=== PATIENT | male | born 1975 | race Caucasian/White ===

== ENCOUNTER 2018-04-28 19:17 | Emergency (ER) | payer BC ==
[2018-04-28 19:54] VITALS: O2SAT 95
--- NOTE | 2018-04-28 20:03 | ERPHSYRPT ---
- History of Present Illness Time Seen by Provider: 04/28/18 19:58 Source: patient Exam Limitations: no limitations Patient Subjective Stated Complaint: pt is alert and oriented. pt is ambulatory with a steady gait. pt states that he smashed his left thumb with a hammer. there is some bruising noted underneath the thumb nail and an open area on the back of the thumb. no actively bleeding at this time. Triage Nursing Assessment: see above Physician History: The patient is a 43-year-old right-handed male complaining that he accidentally hit the tip of his left thumb with a hammer while doing some work around home. He has a bruised thumbnail with tiny surrounding lacerations to the thumbnail and a laceration to the pad of his left thumb. He was worried that he possibly had broken the bone of his thumb. His last tetanus vaccination was in 2013. Occurred: just prior to arrival Method of Injury: direct blow Quality: constant Severity of Pain-Max: mild Severity of Pain-Current: mild Extremities Pain Location: thumb: left Modifying Factors: Improves With: nothing Allergies/Adverse Reactions: No Known Drug Allergies Allergy (Unverified 10/12/15 10:23) Hx Tetanus, Diphtheria Vaccination/Date Given: Yes (2015) Hx Influenza Vaccination/Date Given: No Hx Pneumococcal Vaccination/Date Given: No Immunizations Up to Date: Yes - Review of Systems Constitutional: No Fever, No Chills Eyes: No Symptoms Ears, Nose, & Throat: No Symptoms Respiratory: No Cough, No Dyspnea Cardiac: No Chest Pain, No Edema, No Syncope Abdominal/Gastrointestinal: No Abdominal Pain, No Nausea, No Vomiting, No Diarrhea Genitourinary Symptoms: No Dysuria Musculoskeletal: Injury, No Back Pain, No Neck Pain Skin: Other (laceration), No Rash Neurological: No Dizziness, No Focal Weakness, No Sensory Changes Psychological: No Symptoms Endocrine: No Symptoms Hematologic/Lymphatic: No Symptoms Immunological/Allergic: No Symptoms All Other Systems: Reviewed and Negative - Past Medical History Pertinent Past Medical History: Yes Neurological History: No Pertinent History ENT History: No Pertinent History Cardiac History: Hypertension Respiratory History: No Pertinent History, Sleep Apnea Endocrine Medical History: No Pertinent History Musculoskeletal History: No Pertinent History GI Medical History: No Pertinent History History: No Pertinent History Psycho-Social History: No Pertinent History Male Reproductive Disorders: No Pertinent History Other Medical History: White coat Syndrome, Severe obstructive sleep apnea - Past Surgical History Past Surgical History: Yes Neuro Surgical History: No Pertinent History Cardiac: No Pertinent History Respiratory: No Pertinent History Gastrointestinal: No Pertinent History Genitourinary: No Pertinent History Musculoskeletal: No Pertinent History Male Surgical History: No Pertinent History Other Surgical History: colonoscopy every 5 yrs - Social History Smoking Status: Never smoker Exposure to second hand smoke: Yes Drug Use: none Patient Lives Alone: No - Nursing Vital Signs Nursing Vital Signs: Initial Vital Signs Temperature 98.5 F 04/28/18 19:18 Pulse Rate 94 H 04/28/18 19:18 Respiratory Rate 16 04/28/18 19:18 Blood Pressure 158/104 04/28/18 19:18 O2 Sat by Pulse Oximetry 95 04/28/18 19:18 Pain Scale Pain Intensity 3 - Physical Exam General Appearance: alert Eyes, Ears, Nose, Throat Exam: moist mucous membranes Neck Exam: non-tender, supple Cardiovascular/Respiratory Exam: chest non-tender, normal breath sounds, regular rate/rhythm, no respiratory distress Abdominal Exam: non-tender, No guarding Back Exam: normal inspection, No vertebral tenderness Shoulder Exam: normal inspection Elbow/Forearm Exam: normal inspection Wrist Exam: normal inspection Hand Exam: ecchymosis (left thumb nail), laceration (0.5 cm laceration to pad of left thumb), nail injury (left thumb), soft tissue tenderness (distal left thumb) Neuro/Tendon Exam: normal sensation, normal motor functions Mental Status Exam: alert, oriented x 3, cooperative Skin Exam: laceration SpO2 Interpretation: normal SpO2: 95 Oxygen Delivery: Room Air Ordered Tests: Active Orders 24 hr Category Date Time Status IV Insertion STAT Care 04/28/18 20:47 Active FINGER(S) Stat Exams 04/28/18 20:06 Taken Medication Summary Generic Name Dose Route Start Last Admin Trade Name Freq PRN Reason Stop Dose Admin Piperacillin Sod/Tazobactam Sod 3.375 gm in 100 mls @ 200 mls/hr 04/28/18 20: 48 Zosyn 3.375gm/100 Ml D5w IV 04/28/18 21:17 STAT STA Discontinued Medications Generic Name Dose Route Start Last Admin Trade Name Freq PRN Reason Stop Dose Admin Ketorolac Tromethamine 60 mg 04/28/18 20:05 04/28/18 20:28 Toradol 30 Mg Injection IM 04/28/18 20:06 60 mg STAT ONE Administration Ketorolac Tromethamine Confirm 04/28/18 20:16 Toradol 30 Mg Injection Administered 04/28/18 20:17 Dose 60 mg .ROUTE .STK-MED ONE - Progress Progress: improved Progress Note: 04/28/18 20:51 Pt declines sutures. Counseled pt/family regarding: diagnosis, rad results - Departure Time of Disposition: 20:51 Departure Disposition: Home Clinical Impression: Fracture of thumb, left, open Condition: Stable Critical Care Time: No Referrals: JESS DUQUE [Primary Care Provider] - Additional Instructions: You have avulsion fractures off the tip of your left thumb as well as minor lacerations over the fractures. You were given Zosyn 3.375 g by IV in the ER. You were given Toradol 60 mg by IM in the ER. Take Augmentin 875 to times a day for 10 days. You had declined suturing. Follow-up as needed. Prescriptions: Amoxicillin/Potassium Clav [Augmentin 875-125 Tablet] 875 mg PO BID #20 tablet
[2018-04-28] MEDS ORDERED: TORAdol 30 mg Injection IM ONE (20:05)
[2018-04-28] MEDS ORDERED: TORAdol 30 mg Injection ONE (20:16)
[2018-04-28] MEDS ORDERED: Zosyn 3.375GM/100 Ml D5W 3.375 GM/100 ML IVPB IV STA (20:48)
[2018-04-28] MEDS ORDERED: Zosyn 3.375GM/100 Ml D5W 3.375 GM/100 ML IVPB IV ONE (21:25)
[2018-04-28 22:18] VITALS: BP 146/98; PULSE 92
--- NOTE | 2018-04-28 22:33 | XRAY ---
Indication: Pain following hammer injury. Impression: No 3 views of the left thumb demonstrates tuft fracture with minimally displaced fracture fragments anteromedially and soft tissue swelling. No other bony, articular, or soft tissue abnormalities.
== END 2018-04-28 22:19 | disposition home or self-care (01) ==
LOC: ED 19:17
DX: S62.502B Fracture of unspecified phalanx of left thumb, initial encounter for open fracture (principal); W22.8XXA Striking against or struck by other objects, initial encounter; Y93.E9 Activity, other interior property and clothing maintenance; Y92.009 Unspecified place in unspecified non-institutional (private) residence as the place of occurrence of the external cause
CPT/HCPCS: 36000; 73140; 96372; 99284; J1885; J2543

== ENCOUNTER 2021-11-12 14:14 | Inpatient (IN) | payer OTHER ==
[2021-11-12] MEDS ORDERED: solu-MEDROL 125 MG, Sterile H2O 10 ml 2 ML IV ONE ×2 (14:27)
--- NOTE | 2021-11-12 14:27 | ERPHSYRPT ---
- History of Present Illness Time Seen by Provider: 11/12/21 14:26 Source: patient Exam Limitations: no limitations Patient Subjective Stated Complaint: pt reports he was at this facility to receive monoclonal antibodies for covid treatment, pt states he is positive for influenza A and Covid, reports that when he arrived today his O2 sat was 86% on room air. OPS staff sent him to ER for eval and treatment Triage Nursing Assessment: pt is aox3, pt appears weak, afebrile, pt is short of breath at rest, persistent cough noted, lung sounds are very diminished posterior, pt cap refill < 3 seconds, radial pulses strong and equal, pt skin pale warm dry. Physician History: This is a 46-year-old overweight white male who has not been feeling well and states that he has had flulike symptoms for several days. 2 days ago he found out he was positive for influenza A. Today, the patient found out that he was COVID-19 positive. He has been having flulike symptoms including cough and shortness of breath as well as myalgias and arthralgias. Patient arrived at the outpatient infusion clinic to receive monoclonal antibody therapy and his room air oxygenation level was 86%. He was sent to the emergency department for evaluation and treatment. Patient denies chest pain. He has had no nausea vomiting or diarrhea. Timing/Duration: day(s) Activities at Onset: activity Severity of Dyspnea-Max: moderate (This) Severity of Dyspnea-Current: moderate Possible Cause: no prior episodes Modifying Factors: Improves With: activity, coughing, oxygen (Improves) Associated Symptoms: cough, loss of appetite, No chest pain/discomfort Allergies/Adverse Reactions: No Known Drug Allergies Allergy (Verified 11/12/21 14:24) Hx Tetanus, Diphtheria Vaccination/Date Given: Yes Hx Influenza Vaccination/Date Given: No Hx Pneumococcal Vaccination/Date Given: No Immunizations Up to Date: Yes Travel Risk - International Travel Have you traveled outside of the country in past 3 weeks: No - Coronavirus Screening Are you exhibiting any of the following symptoms?: Yes Symptoms: Fever, Cough: New Onset, Shortness of Breath, Headaches/Body Aches/Fatigue Close contact with a COVID-19 positive Pt in past 14-21 Days: No - Vaccine Status Have you recieved a Covid-19 vaccination: No - Review of Systems Constitutional: Weakness Eyes: No Symptoms Ears, Nose, & Throat: No Symptoms Respiratory: Cough, Dyspnea Cardiac: No Symptoms Abdominal/Gastrointestinal: No Symptoms Genitourinary Symptoms: No Symptoms Musculoskeletal: Arthralgias, Myalgias Skin: No Symptoms Neurological: No Symptoms Psychological: No Symptoms Endocrine: No Symptoms Hematologic/Lymphatic: No Symptoms Immunological/Allergic: No Symptoms All Other Systems: Reviewed and Negative - Past Medical History Pertinent Past Medical History: Yes Neurological History: No Pertinent History ENT History: No Pertinent History Cardiac History: Hypertension Respiratory History: No Pertinent History, Sleep Apnea Endocrine Medical History: No Pertinent History, Hypothyroidism Musculoskeletal History: No Pertinent History GI Medical History: No Pertinent History History: No Pertinent History Psycho-Social History: No Pertinent History Male Reproductive Disorders: No Pertinent History Other Medical History: White coat Syndrome, Severe obstructive sleep apnea - Past Surgical History Past Surgical History: Yes Neuro Surgical History: No Pertinent History Cardiac: No Pertinent History Respiratory: No Pertinent History Gastrointestinal: No Pertinent History Genitourinary: No Pertinent History Musculoskeletal: No Pertinent History Male Surgical History: No Pertinent History Other Surgical History: colonoscopy every 5 yrs - Social History Smoking Status: Never smoker Exposure to second hand smoke: Yes Drug Use: none Patient Lives Alone: No - Nursing Vital Signs Nursing Vital Signs: Initial Vital Signs Pulse Rate 92 H 11/12/21 14:16 Respiratory Rate 26 H 11/12/21 14:16 Blood Pressure 120/68 11/12/21 14:16 O2 Sat by Pulse Oximetry 86 L 11/12/21 14:16 Pain Scale Pain Intensity 0 - Physical Exam General Appearance: no apparent distress, alert, anxiety Eye Exam: PERRL/EOMI, eyes nml inspection Ears, Nose, Throat Exam: hearing grossly normal, normal ENT inspection Neck Exam: normal inspection, non-tender, supple, full range of motion Respiratory Exam: normal breath sounds, lungs clear, airway intact, No chest tenderness, No respiratory distress Cardiovascular/Chest Exam: normal heart sounds, regular rate/rhythm Abdominal/Gastrointestinal Exam: soft, normal bowel sounds, No tenderness Rectal Exam: not done Extremity Exam: non-tender, normal range of motion, normal inspection Neurologic Exam: alert, oriented x 3, cooperative, 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 STAT Care 11/12/21 14:28 Active EKG-ER Only STAT Care 11/12/21 14:27 Active IV Insertion STAT Care 11/12/21 14:27 Active Isolation, Initiate & Maintain STAT Care 11/12/21 14:28 Active CHEST 1 VIEW (PORTABLE) Stat Exams 11/12/21 14:51 Completed BLOOD CULTURE Stat Lab 11/12/21 14:42 Received CBC W DIFF Stat Lab 11/12/21 14:13 Completed CMP Stat Lab 11/12/21 14:27 Completed D-DIMER QUANTITATIVE Stat Lab 11/12/21 14:13 Completed Lactic Acid Stat Lab 11/12/21 14:27 Completed [place] Screen Stat Lab 11/12/21 14:42 Received TROPONIN Q3H Lab 11/12/21 14:13 Completed TROPONIN Q3H Lab 11/12/21 17:30 Ordered TROPONIN Q3H Lab 11/12/21 20:30 Ordered TROPONIN Q3H Lab 11/12/21 23:30 Ordered TROPONIN Q3H Lab 11/13/21 02:30 Ordered Medication Summary Generic Name Dose Route Start Last Admin Trade Name Freq PRN Reason Stop Dose Admin Sodium Chloride 1,000 mls @ 100 mls/hr 11/12/21 14:30 11/12/21 14:49 Sodium Chloride 0.9% 1000 Ml IV 12/12/21 14:29 100 mls/hr .Q10H JANNET Administration Discontinued Medications Generic Name Dose Route Start Last Admin Trade Name Freq PRN Reason Stop Dose Admin Hydrocodone Bitart/Acetaminophen 10 ml 11/12/21 14:29 11/12/21 14:50 Hydrocodone/Acetaminophen 5 Ml Udcup PO 11/12/21 14:30 10 ml STAT STA Administration Hydrocodone Bitart/Acetaminophen Confirm 11/12/21 14:49 Hydrocodone/Acetaminophen 5 Ml Udcup Administered 11/12/21 14:50 Dose 10 ml .ROUTE .STK-MED ONE Methylprednisolone Sodium 0 mg 11/12/21 14:27 11/12/21 14:48 Succinate 125 mg/ Sterile IV 11/12/21 14:28 125 mg Water 2 ml STAT ONE Administration Methylprednisolone Sodium Succinate Confirm 11/12/21 14:46 Methylprednis Sod Succ 125 Mg/2 Ml Vial Administered 11/12/21 14:47 Dose 125 mg .ROUTE .youbeQ - Maps With LifeK-MED ONE Sterile Water Confirm 11/12/21 14:46 Water For Injection,Sterile 10 Ml Vial Administered 11/12/21 14:47 Dose 10 ml IJ .STD-Sight-MED ONE Lab/Rad Data: Laboratory Result Diagrams 11/12/21 14:13 11/12/21 14:27 Laboratory Results 11/12/21 11/12/21 11/12/21 Range/Units 14:42 14:27 14:27 WBC (4.0-10.5) K/mm3 RBC (4.1-5.6) M/mm3 Hgb (12.5-18.0) gm/dl Hct (42-50) % MCV (78-100) fl MCH (26-32) pg MCHC (32-36) g/dl RDW (11.5-14.0) % Plt Count (150-450) K/mm3 MPV (7.5-11.0) fl Gran % (36.0-66.0) % Eos # (Auto) (0-0.5) Absolute Lymphs (auto) (1.0-4.6) Absolute Monos (auto) (0.0-1.3) Lymphocytes % (24.0-44.0) % Monocytes % (0.0-12.0) % Eosinophils % (0.00-5.0) % Basophils % (0.0-0.4) % Absolute Granulocytes (1.4-6.9) Basophils # (0-0.4) D-Dimer (215-500) ng/mL Sodium 137 (137-145) mmol/L Potassium 3.9 (3.5-5.1) mmol/L Chloride 100 (98-107) mmol/L Carbon Dioxide 29 (22-30) mmol/L Anion Gap 11.6 (5-15) MEQ/L BUN 17 (9-20) mg/dL Creatinine 1.28 H (0.66-1.25) mg/dL Estimated GFR > 60.0 ML/MIN Glucose 109 H (74-106) mg/dL Lactic Acid 2.0 (0.4-2.0) Calcium 8.7 (8.4-10.2) mg/dL Total Bilirubin 0.70 (0.2-1.3) mg/dL AST 115 H (17-59) U/L ALT 60 H (0-50) U/L Alkaline Phosphatase 51 (38-126) U/L Troponin I (0.000-0.034) ng/mL Serum Total Protein 7.5 (6.3-8.2) g/dL Albumin 4.0 (3.5-5.0) g/dL Group A Strep Antibody NOT DETECTED (NEGATIVE) 11/12/21 11/12/21 11/12/21 Range/Units 14:13 14:13 14:13 WBC 4.1 (4.0-10.5) K/mm3 RBC 5.04 (4.1-5.6) M/mm3 Hgb 15.4 (12.5-18.0) gm/dl Hct 46.5 (42-50) % MCV 92.3 (78-100) fl MCH 30.6 (26-32) pg MCHC 33.1 (32-36) g/dl RDW 14.1 H (11.5-14.0) % Plt Count 159 (150-450) K/mm3 MPV 10.5 (7.5-11.0) fl Gran % 73.2 H (36.0-66.0) % Eos # (Auto) 0.01 (0-0.5) Absolute Lymphs (auto) 0.86 L (1.0-4.6) Absolute Monos (auto) 0.22 (0.0-1.3) Lymphocytes % 21.0 L (24.0-44.0) % Monocytes % 5.4 (0.0-12.0) % Eosinophils % 0.2 (0.00-5.0) % Basophils % 0.2 (0.0-0.4) % Absolute Granulocytes 3.00 (1.4-6.9) Basophils # 0.01 (0-0.4) D-Dimer 672 H* (215-500) ng/mL Sodium (137-145) mmol/L Potassium (3.5-5.1) mmol/L Chloride (98-107) mmol/L Carbon Dioxide (22-30) mmol/L Anion Gap (5-15) MEQ/L BUN (9-20) mg/dL Creatinine (0.66-1.25) mg/dL Estimated GFR ML/MIN Glucose (74-106) mg/dL Lactic Acid (0.4-2.0) Calcium (8.4-10.2) mg/dL Total Bilirubin (0.2-1.3) mg/dL AST (17-59) U/L ALT (0-50) U/L Alkaline Phosphatase (38-126) U/L Troponin I < 0.012 (0.000-0.034) ng/mL Serum Total Protein (6.3-8.2) g/dL Albumin (3.5-5.0) g/dL Group A Strep Antibody (NEGATIVE) - Progress Progress: improved, re-examined Air Movement: good Progress Note: 11/12/21 15:26 Chest x-ray today compared to 11/10/2021 shows worsening moderate diffuse bilateral airspace disease with new patchy areas of consolidation 11/12/21 15:35 Medical decision making: This patient has worsening symptoms. He was COVID-19 positive with COVID 19 pneumonia. He is hypoxic. I spoke with Dr. Dasilva and we will place him into the COVID unit once a bed becomes available. We will start treatment down here at this time in the emergency department. Blood Culture(s) Obtained: Yes Discussed with : Other (Vidya) Counseled pt/family regarding: lab results, diagnosis, rad results - Departure Departure Disposition: In-patient Admission Clinical Impression: Pneumonia due to COVID-19 virus, Hypoxia Condition: Fair Critical Care Time: Yes Critical Care Time(excluding separately billable procedures): Critical 30-74 mins (30) Referrals: JESS DUQUE [Primary Care Provider] - Follow up/PCP as directed
[2021-11-12] MEDS ORDERED: HYDROCODONE-ACETAMIN 2.5-108/5 ML SOLUTION PO STA (14:29)
[2021-11-12] MEDS ORDERED: Sodium Chloride 0.9% 1000 ML 1,000 ML IV SCH (14:30)
[2021-11-12 14:36] LABS: Basophil (Absolute #) 0.01 (0-0.4); Eosinophil % 0.2 % (0.00-5.0); Eosinophil (Absolute #) 0.01 (0-0.5); Hematocrit 46.5 % (42-50); Hemoglobin 15.4 gm/dl (12.5-18.0); Lymphocyte (Absolute #) 0.86 (1.0-4.6); Mean Cell Volume 92.3 fl (78-100); Mean Corpuscular Hemoglobin 30.6 pg (26-32); Mean Corpuscular Hgb Concent. 33.1 g/dl (32-36); Mean Platelet Volume 10.5 fl (7.5-11.0); Monocyte (Absolute #) 0.22 (0.0-1.3); Monocytes % 5.4 % (0.0-12.0); Neutrophil % 73.2 % (36.0-66.0); Platelet Count 159 K/mm3 (150-450); Red Blood Count 5.04 M/mm3 (4.1-5.6); Red Cell Distribution Width 14.1 % (11.5-14.0); White Blood Count 4.1 K/mm3 (4.0-10.5)
[2021-11-12 14:43] LABS: ALKALINE PHOSPHATASE 51 U/L (38-126); ANION GAP 11.6 MEQ/L (5-15); BLOOD UREA NITROGEN 17 mg/dL (9-20); CHLORIDE 100 mmol/L (98-107); Calcium 8.7 mg/dL (8.4-10.2); Carbon Dioxide 29 mmol/L (22-30); Creatinine 1 1.28 mg/dL (0.66-1.25); EST GLOMERULAR FILTRATION RATE > 60.0 ML/MIN; Glucose 109 mg/dL (74-106); Potassium 3.9 mmol/L (3.5-5.1); SGOT/AST 115 U/L (17-59); SGPT/ALT 60 U/L (0-50); SODIUM 137 mmol/L (137-145); Total Protein 7.5 g/dL (6.3-8.2)
[2021-11-12] MEDS ORDERED: solu-MEDROL ONE (14:46)
[2021-11-12] MEDS ORDERED: Sterile H2O 10 ml IJ ONE (14:46)
[2021-11-12] MEDS ORDERED: HYDROCODONE-ACETAMIN 2.5-108/5 ML SOLUTION ONE (14:49)
--- NOTE | 2021-11-12 14:58 | XRAY ---
Indication: Fever and cough. Positive Covid 19. Comparison: November 10, 2021. Pourable chest demonstrates worsening moderate diffuse bilateral airspace disease with new patchy areas of consolidation. Heart not enlarged. Bony thorax intact.
[2021-11-12] MEDS ORDERED: ENOXAPARIN SODIUM SQ STA (15:38)
[2021-11-12] MEDS ORDERED: REMDESIVIR 200 MG in Sodium Chloride 0.9% 250 ML 250 ML IV ONE (15:38)
[2021-11-12] MEDS ORDERED: ENOXAPARIN SODIUM SQ ONE (16:18)
[2021-11-12] MEDS ORDERED: Lomotil PO PRN (17:25)
[2021-11-12] MEDS ORDERED: Ativan 2 MG/1 ML VIAL IV PRN (17:26)
[2021-11-12] MEDS ORDERED: Ativan 1 MG PO PRN (17:26)
[2021-11-12] MEDS ORDERED: TYLENOL EXTRA STRENGTH 500 MG PO PRN (17:27)
[2021-11-12] MEDS ORDERED: FEVERALL 650 MG RC PRN (17:27)
[2021-11-12] MEDS ORDERED: HYDROCODONE-CHLORPHEN ER SUSP PO PRN (17:27)
[2021-11-12] MEDS ORDERED: Zofran 4 MG/2 ML VIAL IV PRN (17:33)
[2021-11-12] MEDS: Sodium Chloride 0.9% 1000 ML 1,000 ML IV SCH (17:49)
[2021-11-12] MEDS: OLUMIANT PO SCH (18:43)
[2021-11-13] MEDS: HYDROCODONE-CHLORPHEN ER SUSP PO PRN (02:54)
[2021-11-13 05:51] LABS: Hematocrit 43.7 % (42-50); Hemoglobin 14.2 gm/dl (12.5-18.0); Mean Cell Volume 91.8 fl (78-100); Mean Corpuscular Hemoglobin 29.8 pg (26-32); Mean Corpuscular Hgb Concent. 32.5 g/dl (32-36); Mean Platelet Volume 10.9 fl (7.5-11.0); Platelet Count 166 K/mm3 (150-450); Red Blood Count 4.76 M/mm3 (4.1-5.6)
[2021-11-13] MEDS: Sodium Chloride 0.9% 1000 ML 1,000 ML IV SCH (06:14)
[2021-11-13 06:39] LABS: ALBUMIN 3.3 g/dL (3.5-5.0); ALKALINE PHOSPHATASE 46 U/L (38-126); ANION GAP 13.1 MEQ/L (5-15); BLOOD UREA NITROGEN 18 mg/dL (9-20); CHLORIDE 103 mmol/L (98-107); Calcium 8.5 mg/dL (8.4-10.2); Carbon Dioxide 23 mmol/L (22-30); Creatinine 1 0.87 mg/dL (0.66-1.25); EST GLOMERULAR FILTRATION RATE > 60.0 ML/MIN; Glucose 129 mg/dL (74-106); Potassium 4.4 mmol/L (3.5-5.1); SGOT/AST 89 U/L (17-59); SGPT/ALT 50 U/L (0-50); SODIUM 135 mmol/L (137-145); Total Protein 6.2 g/dL (6.3-8.2)
--- NOTE | 2021-11-13 09:17 | HP ---
CHIEF COMPLAINT: Achiness, fever, chills, nausea, vomiting, cough for three days. HISTORY OF PRESENT ILLNESS: The patient came to the emergency room after the following complaints. Apparently he was sent over for monoclonal antibodies but his O2 saturation was 86% on room air which makes him too sick to send home. He tested positive for influenza A and COVID. His has it however she is not near as sick. He is a 46-year-old patient. He has hypertension and obesity. No diabetes or other risk factors. He is a nonsmoker. He is not vaxxed. MEDICATIONS: Benzonatate 100 mg t.i.d., Zofran 4 mg every six hours PRN, losartan 50 mg q.d., levothyroxine 125 mcg q.d. ALLERGIES: NKDA. PAST MEDICAL HISTORY: Hypothyroidism. Hypertension. Sleep apnea. PAST SURGICAL HISTORY: He does get a colonoscopy every five years due to family history. REVIEW OF SYSTEMS: HEENT: Headache, eyes hurt. CHEST: Chest aches, nonproductive cough for three days. CVS: No exertional chest pain. He has hypertension. No heart attack. ABDOMEN: Nauseated, vomiting, diarrhea which has gotten better since he has been in the emergency room and they gave him some Imodium. ENDOCRINE: No diabetes. No hypothyroidism. PHYSICAL EXAMINATION: The patient looks acutely ill. He is obese. He is appropriate, pleasant and intelligent. VITAL SIGNS: Pulse 92, respirations 26, blood pressure 120/68. O2 saturation 86% on room air. HEENT: Pupils equal and reactive to light. Dry mucosal membranes. NECK: Supple without adenopathy. CHEST: Clear. CVS: No murmurs or gallops. ABDOMEN: Obese, slightly tender all over. Normal bowel sounds. EXTREMITIES: Fair pulses. No edema. LAB DATA AND TESTS: EKG no acute changes with nonspecific lateral ST changes throughout. Lab work: The patient's sodium 137, potassium 3.9, creatinine 1.28, glucose 109, lactic acid is high normal at 2.0. Liver enzymes: ALT is minimally elevated at 60 and AST is 115 twice normal. White count is 4.1, hemoglobin 15. D-dimer is mildly elevated at 672. Chest x-ray showed bilateral lower pneumonia typical for COVID. IMPRESSION: The patient definitely has: 1) COVID pneumonia with hypoxia. 2) Obesity. 3) Hypertension. 4) Tested positive for influenza A. PLAN: At this time will start him on the usual COVID medications and anticoagulate him. PROGNOSIS: Fair.
[2021-11-13] MEDS: Cozaar 50 MG PO SCH (09:44)
[2021-11-13] MEDS: ENOXAPARIN SODIUM SQ SCH (09:44)
[2021-11-13] MEDS: DECADRON 10MG INJ. IV SCH (09:44)
[2021-11-13] MEDS: OLUMIANT PO SCH (09:44)
[2021-11-13] MEDS: REMDESIVIR 100 MG in Sodium Chloride 0.9% 100 ML BAG 100 ML IV SCH ×2 (09:45→10:34)
[2021-11-13] MEDS: SYNTHROID 125 MCG PO SCH (09:45)
[2021-11-13] MEDS ORDERED: DECADRON 10MG INJ. IV SCH (10:00)
[2021-11-13] MEDS ORDERED: SYNTHROID 100 MCG PO SCH (10:00)
[2021-11-13] MEDS ORDERED: ENOXAPARIN SODIUM SQ SCH (10:00)
[2021-11-13] MEDS ORDERED: REMDESIVIR 100 MG in Sodium Chloride 0.9% 100 ML BAG 100 ML IV SCH (10:00)
--- NOTE | 2021-11-13 12:47 | PROG NOTE ---
DATE: 11/13/2021 HISTORY: I saw the patient in the emergency room on 11/12/2021. He came in to try to get monoclonal antibodies. He was positive for influenza A and COVID in the emergency room earlier today. His O2 saturation was 86% on room air. He said he feels weak, short of breath at rest, persistent cough. He is still bad. I think he lives by himself. 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 MEDICATIONS: Benzonatate, Zofran, Cozaar, levothyroxine. ALLERGIES: NKDA. PAST MEDICAL HISTORY: Hypertension. Obstructive sleep apnea. PAST SURGICAL HISTORY: He gets a colonoscope every five years. I assume he has polyps. REVIEW OF SYSTEMS: HEENT: No problems hearing or seeing. No loss of taste. CHEST: Cough, nonsmoker. CVS: No exertional chest pain, palpitations or heart attack. Hypertension. ABDOMEN: Nauseated, unable to eat for the last few days. EXTREMITIES: Denies any bad pain in his joints. ENDOCRINE: Hypertension. LAB DATA AND TESTS: Lab work: Hemoglobin 15.4, white count 4.1. D-dimer 672. Lactic acid is 2.0. X-ray shows moderately diffuse bilateral airspace disease with new patchy areas of consolidation and that was from yesterday. PHYSICAL EXAMINATION: The patient is alert, orientated and anxious. He is talking about Ivermectin, vitamin C and alternative medications. I tried to explain to him that they have been tested numerous times and found ineffective. VITAL SIGNS: Temperature 93F, pulse 70, respirations 16, blood pressure 130/70. O2 saturation on 2 liters 91%. HEENT: Pupils equal and reactive to light. NECK: Supple without adenopathy. CHEST: Clear. Bilateral rales right now. CVS: No murmurs or gallop. ABDOMEN: Obese. EXTREMITIES: No cyanosis. IMPRESSION: Since last night however, his O2 saturation has gotten worse and he is on 8 liters. His O2 drops frequently into the mid 80's. He is going to have a rough course it looks like with bilateral COVID pneumonia. PLAN: Continue antibodies, Decadron, anticoagulation, Remdesivir.
[2021-11-13] MEDS: Tamiflu 75MG Capsule PO SCH (22:44)
[2021-11-14 06:21] LABS: Hematocrit 45.5 % (42-50); Hemoglobin 14.9 gm/dl (12.5-18.0); Mean Cell Volume 92.9 fl (78-100); Mean Corpuscular Hemoglobin 30.4 pg (26-32); Mean Corpuscular Hgb Concent. 32.7 g/dl (32-36); Mean Platelet Volume 10.5 fl (7.5-11.0); Platelet Count 232 K/mm3 (150-450); Red Cell Distribution Width 14.1 % (11.5-14.0); White Blood Count 11.2 K/mm3 (4.0-10.5)
[2021-11-14 06:46] LABS: ALBUMIN 3.3 g/dL (3.5-5.0); ALKALINE PHOSPHATASE 46 U/L (38-126); ANION GAP 11.9 MEQ/L (5-15); BLOOD UREA NITROGEN 19 mg/dL (9-20); CHLORIDE 106 mmol/L (98-107); Calcium 8.7 mg/dL (8.4-10.2); Carbon Dioxide 25 mmol/L (22-30); Creatinine 1 0.85 mg/dL (0.66-1.25); EST GLOMERULAR FILTRATION RATE > 60.0 ML/MIN; Glucose 113 mg/dL (74-106); Potassium 4.5 mmol/L (3.5-5.1); SGOT/AST 85 U/L (17-59); SGPT/ALT 51 U/L (0-50); SODIUM 139 mmol/L (137-145); Total Protein 6.3 g/dL (6.3-8.2)
[2021-11-14] MEDS: DECADRON 10MG INJ. IV SCH (10:06)
[2021-11-14] MEDS: Cozaar 50 MG PO SCH (10:06)
[2021-11-14] MEDS: OLUMIANT PO SCH (10:07)
[2021-11-14] MEDS: SYNTHROID 125 MCG PO SCH (10:07)
[2021-11-14] MEDS: REMDESIVIR 100 MG in Sodium Chloride 0.9% 100 ML BAG 100 ML IV SCH (10:08)
[2021-11-14] MEDS: ENOXAPARIN SODIUM SQ SCH (10:34)
[2021-11-14] MEDS: Tamiflu 75MG Capsule PO SCH ×2 (11:27→22:47)
[2021-11-15 06:45] LABS: Hematocrit 44.6 % (42-50); Hemoglobin 14.5 gm/dl (12.5-18.0); Mean Cell Volume 93.7 fl (78-100); Mean Corpuscular Hemoglobin 30.5 pg (26-32); Mean Corpuscular Hgb Concent. 32.5 g/dl (32-36); Mean Platelet Volume 10.3 fl (7.5-11.0); Platelet Count 256 K/mm3 (150-450); Red Blood Count 4.76 M/mm3 (4.1-5.6); Red Cell Distribution Width 14.1 % (11.5-14.0); White Blood Count 9.5 K/mm3 (4.0-10.5)
[2021-11-15 08:23] LABS: ALBUMIN 3.1 g/dL (3.5-5.0); ALKALINE PHOSPHATASE 43 U/L (38-126); ANION GAP 13.6 MEQ/L (5-15); BLOOD UREA NITROGEN 25 mg/dL (9-20); CHLORIDE 109 mmol/L (98-107); Calcium 8.4 mg/dL (8.4-10.2); Carbon Dioxide 23 mmol/L (22-30); Creatinine 1 0.82 mg/dL (0.66-1.25); EST GLOMERULAR FILTRATION RATE > 60.0 ML/MIN; Glucose 98 mg/dL (74-106); Potassium 4.6 mmol/L (3.5-5.1); SGOT/AST 81 U/L (17-59); SGPT/ALT 49 U/L (0-50); SODIUM 142 mmol/L (137-145); Total Protein 5.9 g/dL (6.3-8.2)
[2021-11-15] MEDS: DECADRON 10MG INJ. IV SCH (10:02)
[2021-11-15] MEDS: ENOXAPARIN SODIUM SQ SCH (10:02)
[2021-11-15] MEDS: Cozaar 50 MG PO SCH (10:02)
[2021-11-15] MEDS: OLUMIANT PO SCH (10:03)
[2021-11-15] MEDS: REMDESIVIR 100 MG in Sodium Chloride 0.9% 100 ML BAG 100 ML IV SCH (10:03)
[2021-11-15] MEDS: SYNTHROID 125 MCG PO SCH (10:04)
[2021-11-15] MEDS: Tamiflu 75MG Capsule PO SCH (10:15)
--- NOTE | 2021-11-15 19:25 | XRAY ---
Indication: Cough and short of breath. Positive Covid 19. Comparison: November 12, 2021. Portable chest again demonstrates moderate diffuse bilateral airspace disease overall minimally improved. Heart not enlarged. No new cardiopulmonary abnormalities. Comment: Preliminary interpretation made by [facility]. No critical discrepancy.
[2021-11-15] MEDS ORDERED: IMODIUM 2 MG PO PRN (21:13)
[2021-11-16] MEDS: TYLENOL EXTRA STRENGTH 500 MG PO PRN (05:03)
[2021-11-16] MEDS: DECADRON 10MG INJ. IV SCH (10:12)
[2021-11-16] MEDS: ENOXAPARIN SODIUM SQ SCH (10:12)
[2021-11-16] MEDS: Cozaar 50 MG PO SCH (10:12)
[2021-11-16] MEDS: OLUMIANT PO SCH (10:13)
[2021-11-16] MEDS: SYNTHROID 125 MCG PO SCH (10:13)
[2021-11-16] MEDS: REMDESIVIR 100 MG in Sodium Chloride 0.9% 100 ML BAG 100 ML IV SCH (10:15)
--- NOTE | 2021-11-16 10:35 | CONS ---
CONSULT DATE: 11/13/2021 HISTORY: Jose J Rios is a 46-year-old male who has been sick for the past two to three days. The patient has been positive for influenza A along with COVID-19. He was scheduled to have outpatient infusion of monoclonal antibodies. However, upon presentation to outpatient infusion center, he was noted to have low oxygen saturation given which he was recommended hospitalization. He is currently on high flow oxygen saturating in low 90's. He does desaturate easily. He continues to have cough, which is minimally productive. At the time of evaluation, the patient is able to carry out a conversation. He had initially declined treatment with Remdesivir and Olumiant. Subsequently, he did agree to have Remdesivir. However, he still is leery about getting Olumiant. The patient denies previous history of any pulmonary problems. PAST MEDICAL HISTORY: Negative for any significant health problems other than history of hypothyroidism and hypertension. PAST SURGICAL HISTORY: No recent surgery. PERSONAL AND SOCIAL HISTORY: Reviewed. MEDICATIONS: Medications noted. ALLERGIES: NKDA. PHYSICAL EXAMINATION: This is a middle-aged male who appeared to be mildly short of breath during conversation. His temperature is 97.3F, heart rate 85, blood pressure 121/64. Saturating 88 to 91% on high flow 100% oxygen. HEENT: Normocephalic. Oral exam showed small oropharynx. He also has CPAP at home which he runs at 14 cm of water. NECK: Short, supple. CVS: First and second heart sounds are normal, regular, rhythmic. RESPIRATORY: Shows diminished breath sounds, occasional crackles heard. ABDOMEN: Soft. EXTREMITIES: Lower extremities show no significant edema. LABORATORY DATA AND TESTS: Sodium 135, potassium 4.4, chloride 103, bicarb 23, BUN 18, creatinine 0.8, glucose 129, albumin 3.3. White count 4, hemoglobin 14.2, hematocrit 43, PLT 166,000. Chest x-ray was reviewed. ASSESSMENT: This is a 46-year-old male admitted with: 1) Acute severe hypoxic respiratory failure. 2) COVID-19 positive with viral pneumonia. 3) Underlying obstructive sleep apnea. 4) Hypertension. 5) The patient verbally reports being positive for influenza A as well. RECOMMENDATIONS: 1) I agree with present treatment. 2) I spent 15 minutes with patient explaining current standard of care and therapy. I believe given worsening oxygenation, he does qualify and will benefit from Olumiant. He wishes to think about it. 3) Discussed with pharmacy if the patient's influenza A status can be verified, he would also benefit from Tamiflu 75 mg p.o. b.i.d. for five days. 4) I agree with deep vein thrombosis prophylaxis, bronchodilators, postural therapy was discussed. Continue other supportive care with hope of improving clinical outcome. I will be available over the weekend as needed. Thank you for allowing me to participate in the care of your patient.
--- NOTE | 2021-11-16 12:03 | PROG NOTE ---
DATE: 11/14/2021 HISTORY: The patient is still on high flow. His oxygen stayed up around 94%. He is able to walk to the bathroom and he is eating without nausea now. I had explained to him that he is getting the antibodies pill form and he had a paper on it. He was under the idea that he was not getting them that they were going to be intravenously. After we got that straightened out his disposition was a little bit better. He just insists he gets antibodies which of course he should get and he is getting. PHYSICAL EXAMINATION: His color is good. His O2 on high flow was in the low 90's up to 94%. CHEST: Clear. CVS: Heart sounds are regular. ABDOMEN: No tenderness. EXTREMITIES: Good color. No edema. LAB DATA AND TESTS: Glucose 113, total protein 3.3. Liver enzymes were just minimally elevated probably due to weight. IMPRESSION: COVID pneumonia moderate intensity. Chest x-ray showed worsening moderate diffuse bilateral airspace disease when he came in on 11/12/2021 after being seen earlier. EKG with no acute changes, nonspecific ST changes. PROGNOSIS: [place] to be good.
[2021-11-16] MEDS: Protonix 40MG Tablet PO SCH (13:08)
[2021-11-16] MEDS ORDERED: Lopressor 50 MG PO SCH (22:00)
[2021-11-17] MEDS: HYDROCODONE-CHLORPHEN ER SUSP PO PRN ×2 (00:25→23:01)
[2021-11-17] MEDS: DECADRON 10MG INJ. IV SCH (08:45)
[2021-11-17] MEDS: ENOXAPARIN SODIUM SQ SCH (08:45)
[2021-11-17] MEDS: OLUMIANT PO SCH (08:45)
[2021-11-17] MEDS: Cozaar 50 MG PO SCH (08:45)
[2021-11-17] MEDS: Protonix 40MG Tablet PO SCH (08:46)
[2021-11-17] MEDS: SYNTHROID 125 MCG PO SCH (08:46)
--- NOTE | 2021-11-17 09:05 | PROG NOTE ---
DATE: 11/16/2021 HISTORY: He states he is breathing a little bit better. He slept okay all night. His chest x-ray no changes. As we would expect, he has bilateral COVID pneumonia. I explained that to the patient that it would take a long time for his lungs to actually repair themselves that the COVID virus is actually under control. He has agreed to continue with the Decadron and I stopped the Remdesivir and antibodies. He is a big believer in antibodies. He is no longer, I would say, angry and mad. He is pleasant and we get along good. He tested for meth when he came in so that may have added to his kind of agitation. He is back to being pleasant and not so paranoid. He is still on quite a bit of oxygen high flow. I told him that is going to take a week or two to get better, to go home. I told him that he is stable at this point and usually people who are stable at this point do recover. IMPRESSION: He has COVID pneumonia bilateral moderate.
--- NOTE | 2021-11-17 13:02 | PCM.NOTE ---
Date and Time: 11/17/21 1300 Subjective Assessment: still very short of breath, hypoxic - Review of Systems Constitutional: Lethargy, Malaise, Weakness, No Fever, No Chills Eyes: No Symptoms Ears, Nose, & Throat: No Symptoms Respiratory: Short Of Breath, No Cough Cardiac: No Chest Pain, No Edema, No Syncope Abdominal/Gastrointestinal: No Abdominal Pain, No Nausea, No Vomiting, No Diarrhea Genitourinary Symptoms: No Dysuria Musculoskeletal: No Back Pain, No Neck Pain Skin: No Rash Neurological: No Dizziness, No Focal Weakness, No Sensory Changes Psychological: No Symptoms Endocrine: No Symptoms Hematologic/Lymphatic: No Symptoms Immunological/Allergic: No Symptoms Objective Exam General Appearance: no apparent distress, alert Neurologic Exam: alert, oriented x 3, cooperative, normal mood/affect, nml cerebellar function, sensation nml, No motor deficits Skin Exam: normal color, warm, dry Eye Exam: PERRL, EOMI, eyes nml inspection Ears, Nose, Throat Exam: normal ENT inspection, pharynx normal, moist mucous membranes Neck Exam: normal inspection, non-tender, supple, full range of motion Respiratory Exam: diminished breath sounds, No respiratory distress Cardiovascular Exam: regular rate/rhythm, normal heart sounds Gastrointestinal/Abdomen Exam: soft, No tenderness, No mass Extremity Exam: normal inspection, normal range of motion Back Exam: normal inspection, normal range of motion, No CVA tenderness, No vertebral tenderness Male Genitalia Exam: deferred Rectal Exam: deferred OBJECTIVE DATA Vital Signs: Vital Signs - 24 hr Temp Pulse Resp BP Pulse Ox 11/17/21 12:00 97.9 F 57 L 17 115/65 94 L 11/17/21 11:00 55 L 22 94 L 11/17/21 10:00 89 21 90 L 11/17/21 09:01 93 L 11/17/21 09:00 84 16 92 L 11/17/21 08:00 69 22 91 L 11/17/21 06:52 47 L 90 L 11/17/21 05:33 44 L 23 90 L 11/17/21 05:00 46 L 22 89 L 11/17/21 04:00 97.3 F 45 L 16 114/68 95 11/17/21 03:00 45 L 20 96 11/17/21 02:00 43 L 20 95 11/17/21 01:00 43 L 21 94 L 11/16/21 23:54 97.5 F 48 L 16 119/73 93 L 11/16/21 23:00 44 L 18 97 11/16/21 21:48 49 L 20 95 11/16/21 20:51 47 L 21 93 L 11/16/21 19:53 97.8 F 53 L 26 H 122/58 98 11/16/21 19:35 97 11/16/21 19:00 54 L 21 94 L 11/16/21 18:00 58 L 22 94 L 11/16/21 17:00 64 27 H 86 L 11/16/21 16:00 18 11/16/21 15:43 58 L 20 95 11/16/21 15:00 54 L 19 121/63 95 11/16/21 14:00 61 20 91 L Pain Assessment - Last Documented Pain Intensity 0 Pain Scale Used 0-10 Pain Scale Intake and Output: Intake & Output 11/15/21 11/16/21 11/17/21 11/18/21 11:59 11:59 11:59 11:59 Intake Total 2310 1280 1180 Balance 2310 1280 1180 Weight 144.3 kg Multi-Disciplinary Progress Notes: Multi-Disciplinary Progress Notes 11/17/21 10:24 Case Management Note by Rosana Odonnell PATIENT CONTINUES TO BE ACUTELY ILL TODAY. WILL CONTINUE TO FOLLOW AND DISCUSS D/C PLAN/ASSESSMENT WHEN CLINICALLY IMPROVED. Initialized on 11/17/21 10:24 - END OF NOTE Assessment/Plan (1) Pneumonia due to COVID-19 virus Current Visit: Yes Status: Acute Assessment & Plan: Chief Complaint Diagnosis COVID-19, PNEUMONIA, HYPOXIA Allergies Allergy/AdvReac Type Severity Reaction Status Date / Time No Known Drug Allergies Allergy Verified 11/12/21 14:24 Vital Signs (Last 24 hours) Temp Pulse Resp BP Pulse Ox 11/17/21 12:00 97.9 F 57 L 17 115/65 94 L 11/17/21 11:00 55 L 22 94 L 11/17/21 10:00 89 21 90 L 11/17/21 09:01 93 L 11/17/21 09:00 84 16 92 L 11/17/21 08:00 69 22 91 L 11/17/21 06:52 47 L 90 L 11/17/21 05:33 44 L 23 90 L 11/17/21 05:00 46 L 22 89 L 11/17/21 04:00 97.3 F 45 L 16 114/68 95 11/17/21 03:00 45 L 20 96 11/17/21 02:00 43 L 20 95 11/17/21 01:00 43 L 21 94 L 11/16/21 23:54 97.5 F 48 L 16 119/73 93 L 11/16/21 23:00 44 L 18 97 11/16/21 21:48 49 L 20 95 11/16/21 20:51 47 L 21 93 L 11/16/21 19:53 97.8 F 53 L 26 H 122/58 98 11/16/21 19:35 97 11/16/21 19:00 54 L 21 94 L 11/16/21 18:00 58 L 22 94 L 11/16/21 17:00 64 27 H 86 L 11/16/21 16:00 18 11/16/21 15:43 58 L 20 95 11/16/21 15:00 54 L 19 121/63 95 11/16/21 14:00 61 20 91 L Home Medications Medication Instructions Recorded Confirmed Last Taken Type Benzonatate 100 mg PO TIDPRN 11/12/21 11/12/21 Unknown History Levothyroxine Sodium 100 Mcg 125 mcg PO DAILY 11/12/21 11/12/21 11/12/21 History [Synthroid 100 Mcg] Losartan Potassium 50 mg 50 mg PO DAILY 11/12/21 11/12/21 11/12/21 History [Cozaar 50 MG] ondansetron HCL [Zofran] 4 mg PO Q6H PRN 11/12/21 11/12/21 Unknown History Current Medications Generic Name Dose Route Start Last Admin Trade Name Freq PRN Reason Stop Dose Admin Acetaminophen 650 mg 11/12/21 17:27 Acetaminophen 650 Mg Supp.Rect RC 12/12/21 17:26 Q4H PRN PRN TEMP >100.4 Acetaminophen 500 - 1,000 mg 11/12/21 17:33 11/16/21 05:03 Acetaminophen 500 Mg Tablet PO 12/12/21 17:32 1,000 mg Q4H PRN PRN Administration Temp > 100.4 Orally Baricitinib 4 mg 11/12/21 18:00 01/18/22 08:45 Baricitinib 2 Mg Tablet PO 11/25/21 10:01 4 mg DAILY JANNET Administration Chlorphenir/Hydrocodone Polistirex 5 ml 11/12/21 17:33 11/17/21 00:25 Hydrocodone/Chlorphen P-Stirex 1 Ml Daphne.Er.12h PO 12/12/21 17:32 5 ml [id number] PRN Administration COUGH Dexamethasone Sodium Phosphate 8 mg 11/13/21 10:00 11/17/21 08:45 Dexamethasone Sod Phosphate 10 Mg/Ml IV 11/23/21 09:59 8 mg DAILY JANNET Administration Diphenoxylate HCl/Atropine 1 tablet 11/12/21 17:25 Diphenoxylate Hcl/Atropine 1 Tablet PO 12/12/21 17:24 Q4H PRN PRN Enoxaparin Sodium 40 mg 11/13/21 10:00 11/17/21 08:45 Enoxaparin Sodium 40 Mg/0.4 Ml Syringe SQ 12/13/21 09:59 40 mg DAILY JANNET Administration Levothyroxine Sodium 125 mcg 11/13/21 10:00 11/17/21 08:46 Levothyroxine Sodium 125 Mcg Tablet PO 12/13/21 09:59 125 mcg DAILY JANNET Administration Loperamide HCl 2 mg 11/15/21 21:13 11/15/21 21:37 Loperamide Hcl 2 Mg Capsule PO 12/15/21 21:12 2 mg PRN PRN Administration DIARRHEA Lorazepam 1 mg 11/12/21 17:26 Lorazepam 2 Mg/1 Ml 2 Mg Vial IV 12/12/21 17:25 Q4H PRN PRN ANXIETY/SLEEP Lorazepam 1 mg 11/12/21 17:33 Lorazepam 1 Mg Tablet PO 12/12/21 17:32 Q4H PRN PRN Anxiety/Sleep Losartan Potassium 50 mg 11/13/21 10:00 11/17/21 08:45 Losartan Potassium 50 Mg Tablet PO 12/13/21 09:59 50 mg DAILY JANNET Administration Ondansetron HCl 4 mg 11/12/21 17:33 Ondansetron Hcl 4 Mg/2 Ml Vial IV 12/12/21 17:32 Q6H PRN PRN NAUSEA/VOMITING Pantoprazole Sodium 40 mg 11/16/21 12:00 11/17/21 08:46 Protonix (Pantoprazole) 40 Mg Tablet PO 12/16/21 11:59 40 mg DAILY JANNET Administration Discontinued Medications Generic Name Dose Route Start Last Admin Trade Name Freq PRN Reason Stop Dose Admin Acetaminophen 0 mg 11/12/21 17:27 Acetaminophen 500 Mg Tablet PO 12/12/21 17:26 Q4H PRN PRN TEMP >100.4 Hydrocodone Bitart/Acetaminophen 10 ml 11/12/21 14:29 11/12/21 14:50 Hydrocodone/Acetaminophen 5 Ml Udcup PO 11/12/21 14:30 10 ml STAT STA Administration Hydrocodone Bitart/Acetaminophen Confirm 11/12/21 14:49 Hydrocodone/Acetaminophen 5 Ml Udcup Administered 11/12/21 14:50 Dose 10 ml .ROUTE .STK-MED ONE Chlorphenir/Hydrocodone Polistirex 5 ml 11/12/21 17:27 Hydrocodone/Chlorphen P-Stirex 1 Ml Daphne.Er.12h PO 12/12/21 17:26 [id number] PRN Methylprednisolone Sodium 0 mg 11/12/21 14:27 11/12/21 14:48 Succinate 125 mg/ Sterile IV 11/12/21 14:28 125 mg Water 2 ml STAT ONE Administration Dexamethasone Sodium Phosphate 8 mg 11/13/21 10:00 Dexamethasone Sod Phosphate 10 Mg/Ml IV 12/13/21 09:59 DAILY JANNET Enoxaparin Sodium 120 mg 11/12/21 15:38 11/12/21 16:18 Enoxaparin Sodium 120 Mg/0.8 Ml Syringe SQ 11/12/21 15:39 120 mg STAT STA Administration Enoxaparin Sodium Confirm 11/12/21 16:18 Enoxaparin Sodium 120 Mg/0.8 Ml Syringe Administered 11/12/21 16:19 Dose 120 mg SQ .STK-MED ONE Enoxaparin Sodium 40 mg 11/13/21 10:00 Enoxaparin Sodium 40 Mg/0.4 Ml Syringe SQ 12/13/21 09:59 DAILY JANNET Sodium Chloride 1,000 mls @ 60 mls/hr 11/12/21 14:30 11/12/21 14:49 Sodium Chloride 0.9% 1000 Ml IV 12/12/21 14:29 100 mls/hr .[id number] JANNET Administration Remdesivir 200 mg/ Sodium 250 mls @ 125 mls/hr 11/12/21 15:38 11/12/21 16:16 Chloride IV 11/12/21 17:37 125 mls/hr ONCE ONE Administration Remdesivir 100 mg/ Sodium 100 mls @ 100 mls/hr 11/13/21 10:00 Chloride IV 11/16/21 10:59 DAILY JANNET Sodium Chloride 1,000 mls @ 60 mls/hr 11/12/21 17:33 11/13/21 06:14 Sodium Chloride 0.9% 1000 Ml IV 12/12/21 17:32 60 mls/hr .[id number] JANNET Administration Remdesivir 100 mg/ Sodium 100 mls @ 100 mls/hr 11/13/21 10:00 11/16/21 10:15 Chloride IV 11/16/21 10:59 Not Given DAILY JANNET Lorazepam 1 mg 11/12/21 17:26 Lorazepam 1 Mg Tablet PO 12/12/21 17:25 Q4H PRN PRN ANXIETY/SLEEP Methylprednisolone Sodium Succinate Confirm 11/12/21 14:46 Methylprednis Sod Succ 125 Mg/2 Ml Vial Administered 11/12/21 14:47 Dose 125 mg .ROUTE .STK-MED ONE Metoprolol Tartrate 50 mg 11/16/21 22:00 Metoprolol Tartrate 50 Mg Tablet PO 12/16/21 21:59 BID JANNET Oseltamivir Phosphate 75 mg 11/13/21 22:00 11/15/21 10:15 Oseltamivir 75 Mg Cap PO 11/18/21 21:59 75 mg BID JANNET Administration Sterile Water Confirm 11/12/21 14:46 Water For Injection,Sterile 10 Ml Vial Administered 11/12/21 14:47 Dose 10 ml IJ .STK-MED ONE Intake & Output (Last 24 hours) 11/15/21 11/16/21 11/17/21 11/18/21 11:59 11:59 11:59 11:59 Intake Total 2310 1280 1180 Balance 2310 1280 1180 Weight 144.3 kg Microbiology Results (Last 24 hours) 11/12/21 14:42 Blood Blood Culture Gram Stain - Final Not Reportable 11/12/21 14:42 Blood Blood Culture - Final NO GROWTH 11/12/21 14:13 Blood Blood Culture Gram Stain - Final Not Reportable 11/12/21 14:13 Blood Blood Culture - Final NO GROWTH Orders (Last 24 hours) Category Date Time Status Metoprolol Tartrate 50 mg [Lopressor 50 MG] Med 11/16/21 22:00 Discontinued 50 mg PO BID EKG ROUTINE RT 11/16/21 15:20 Completed Patient Care Notes (Last 24 hours) 11/17/21 10:41 CUSTOMER ACCOUNT ADMINISTRATOR Note by Mely Timmons Walked patient to bathroom his Sats dropped to 62 on oxmizer. Reported to RN Initialized on 11/17/21 10:41 - END OF NOTE 11/17/21 10:24 Case Management Note by Rosana Odonnell PATIENT CONTINUES TO BE ACUTELY ILL TODAY. WILL CONTINUE TO FOLLOW AND DISCUSS D/C PLAN/ASSESSMENT WHEN CLINICALLY IMPROVED. Initialized on 11/17/21 10:24 - END OF NOTE 11/16/21 15:24 Nursing Note by Shy Gibson PT LAYING IN BED RESTING AND HAD A 7 BEAT RUN OF V TACH. REPORTED FINDINGS TO DR. DELAROSA. RECEIVED ORDER FOR EKG AND FOR METOPROLOL TARTRATE 50MG PO BID. Initialized on 11/16/21 15:24 - END OF NOTE 11/16/21 14:32 Nursing Note by Shy Gibson PT RESTING IN BED - O2 SATS AT 91% WITH CPAP ON @ 12 L. Initialized on 11/16/21 14:32 - END OF NOTE 11/16/21 13:37 Nursing Note by Shy Gibson PT BACK IN BED AT THIS TIME AND WITH CPAP ON @ 12 L. SATS RETURNED TO 80% AT THIS TIME. Initialized on 11/16/21 13:37 - END OF NOTE 11/16/21 13:11 Nursing Note by Shy Gibson PT STANDING IN ROOM MARCHING IN PLACE EATING HIS LUNCH. PT REMOVED CPAP @ 12L AND IS WEARING OXYMIZER AT 15L AT THIS TIME WITH OXYGEN SATS 75%. THIS NURSE EDUCATED PT THAT HE NEEDED TO SIT BACK DOWN AND PUT ON HIS CPAP AND PT REFUSED. PT STATES I DONT CARE HOW LOW MY OXYGEN LEVEL IS, I AM NOT SITTING DOWN. Initialized on 11/16/21 13:11 - END OF NOTE Code(s): U07.1 - COVID-19; J12.82 - PNEUMONIA DUE TO CORONAVIRUS DISEASE 2019 (2) Hypoxia Current Visit: Yes Status: Acute Code(s): R09.02 - HYPOXEMIA
[2021-11-17] MEDS ORDERED: Ventolin Hfa MDI IH ONE (19:41)
[2021-11-17] MEDS ORDERED: Ventolin Hfa MDI IH PRN (20:16)
[2021-11-18] MEDS ORDERED: VENTOLIN COMMON CANISTER IH PRN (07:08)
[2021-11-18] MEDS: ENOXAPARIN SODIUM SQ SCH (09:28)
[2021-11-18] MEDS: OLUMIANT PO SCH (09:28)
[2021-11-18] MEDS: Cozaar 50 MG PO SCH (09:28)
[2021-11-18] MEDS: Protonix 40MG Tablet PO SCH (09:28)
[2021-11-18] MEDS: DECADRON 10MG INJ. IV SCH (09:29)
[2021-11-18] MEDS: SYNTHROID 125 MCG PO SCH (09:30)
--- NOTE | 2021-11-18 13:57 | PCM.NOTE ---
Date and Time: 11/18/21 9053 Subjective Assessment: still veryshort of breath - Review of Systems Constitutional: No Fever, No Chills Eyes: No Symptoms Ears, Nose, & Throat: No Symptoms Respiratory: Orthopnea, Short Of Breath, Wheezing, No Cough Cardiac: No Chest Pain, No Edema, No Syncope Abdominal/Gastrointestinal: No Abdominal Pain, No Nausea, No Vomiting, No Diarrhea Genitourinary Symptoms: No Dysuria Musculoskeletal: No Back Pain, No Neck Pain Skin: No Rash Neurological: No Dizziness, No Focal Weakness, No Sensory Changes Psychological: No Symptoms Endocrine: No Symptoms Hematologic/Lymphatic: No Symptoms Immunological/Allergic: No Symptoms Objective Exam General Appearance: no apparent distress, alert Neurologic Exam: alert, oriented x 3, cooperative, normal mood/affect, nml cerebellar function, sensation nml, No motor deficits Skin Exam: normal color, warm, dry Eye Exam: PERRL, EOMI, eyes nml inspection Ears, Nose, Throat Exam: normal ENT inspection, pharynx normal, moist mucous membranes Neck Exam: normal inspection, non-tender, supple, full range of motion Respiratory Exam: diminished breath sounds, crackles/rales, rhonchi, wheezing, No respiratory distress Cardiovascular Exam: regular rate/rhythm, normal heart sounds Gastrointestinal/Abdomen Exam: soft, No tenderness, No mass Extremity Exam: normal inspection, normal range of motion Back Exam: normal inspection, normal range of motion, No CVA tenderness, No vertebral tenderness Male Genitalia Exam: deferred Rectal Exam: deferred OBJECTIVE DATA Vital Signs: Vital Signs - 24 hr Temp Pulse Resp BP Pulse Ox 11/18/21 12:00 98.4 F 80 27 H 86 L 11/18/21 10:59 64 30 H 92 L 11/18/21 10:00 73 29 H 84 L 11/18/21 09:00 70 11/18/21 08:00 65 17 87 L 11/18/21 07:00 66 20 91 L 11/18/21 05:50 56 L 24 11/18/21 04:54 97.3 F 60 14 122/70 11/18/21 03:53 47 L 21 93 L 11/18/21 03:00 45 L 12 95 11/18/21 02:00 53 L 19 92 L 11/18/21 01:00 43 L 20 93 L 11/18/21 00:00 48 L 20 93 L 11/17/21 23:00 57 L 19 81 L 11/17/21 22:00 46 L 24 95 11/17/21 21:00 48 L 22 97 11/17/21 20:00 88 14 83 L 11/17/21 19:45 93 H 24 93 L 11/17/21 19:00 97.7 F 71 24 128/68 90 L 11/17/21 18:00 97.8 F 70 20 116/67 93 L 11/17/21 17:00 97.8 F 70 20 93 L 11/17/21 16:00 97.8 F 70 20 116/67 93 L 11/17/21 15:00 52 L 23 91 L 11/17/21 14:00 97.9 F 60 19 115/65 91 L Pain Assessment - Last Documented Pain Intensity 0 Pain Scale Used 0-10 Pain Scale Intake and Output: Intake & Output 11/16/21 11/17/21 11/18/21 11/19/21 11:59 11:59 11:59 11:59 Intake Total 1280 1180 1900 Balance 1280 1180 1900 Assessment/Plan (1) Pneumonia due to COVID-19 virus Current Visit: Yes Status: Acute Assessment & Plan: Chief Complaint Diagnosis COVID-19, PNEUMONIA, HYPOXIA Allergies Allergy/AdvReac Type Severity Reaction Status Date / Time No Known Drug Allergies Allergy Verified 11/12/21 14:24 Vital Signs (Last 24 hours) Temp Pulse Resp BP Pulse Ox 11/18/21 12:00 98.4 F 80 27 H 86 L 11/18/21 10:59 64 30 H 92 L 11/18/21 10:00 73 29 H 84 L 11/18/21 09:00 70 11/18/21 08:00 65 17 87 L 11/18/21 07:00 66 20 91 L 11/18/21 05:50 56 L 24 11/18/21 04:54 97.3 F 60 14 122/70 11/18/21 03:53 47 L 21 93 L 11/18/21 03:00 45 L 12 95 11/18/21 02:00 53 L 19 92 L 11/18/21 01:00 43 L 20 93 L 11/18/21 00:00 48 L 20 93 L 11/17/21 23:00 57 L 19 81 L 11/17/21 22:00 46 L 24 95 11/17/21 21:00 48 L 22 97 11/17/21 20:00 88 14 83 L 11/17/21 19:45 93 H 24 93 L 11/17/21 19:00 97.7 F 71 24 128/68 90 L 11/17/21 18:00 97.8 F 70 20 116/67 93 L 11/17/21 17:00 97.8 F 70 20 93 L 11/17/21 16:00 97.8 F 70 20 116/67 93 L 11/17/21 15:00 52 L 23 91 L 11/17/21 14:00 97.9 F 60 19 115/65 91 L Home Medications Medication Instructions Recorded Confirmed Last Taken Type Benzonatate 100 mg PO TIDPRN 11/12/21 11/12/21 Unknown History Levothyroxine Sodium 100 Mcg 125 mcg PO DAILY 11/12/21 11/12/21 11/12/21 History [Synthroid 100 Mcg] Losartan Potassium 50 mg 50 mg PO DAILY 11/12/21 11/12/21 11/12/21 History [Cozaar 50 MG] ondansetron HCL [Zofran] 4 mg PO Q6H PRN 11/12/21 11/12/21 Unknown History Current Medications Generic Name Dose Route Start Last Admin Trade Name Freq PRN Reason Stop Dose Admin Acetaminophen 650 mg 11/12/21 17:27 Acetaminophen 650 Mg Supp.Rect RC 12/12/21 17:26 Q4H PRN PRN TEMP >100.4 Acetaminophen 500 - 1,000 mg 11/12/21 17:33 11/16/21 05:03 Acetaminophen 500 Mg Tablet PO 12/12/21 17:32 1,000 mg Q4H PRN PRN Administration Temp > 100.4 Orally Albuterol Sulfate 2 puff 11/18/21 07:08 Albuterol Common Canister Inhaler IH 12/18/21 07:07 Q4H PRN PRN sob Baricitinib 4 mg 11/12/21 18:00 11/18/21 09:28 Baricitinib 2 Mg Tablet PO 11/25/21 10:01 4 mg DAILY JANNET Administration Chlorphenir/Hydrocodone Polistirex 5 ml 11/12/21 17:33 11/17/21 23:01 Hydrocodone/Chlorphen P-Stirex 1 Ml Daphne.Er.12h PO 12/12/21 17:32 5 ml [id number] PRN Administration COUGH Dexamethasone Sodium Phosphate 8 mg 11/13/21 10:00 11/18/21 09:29 Dexamethasone Sod Phosphate 10 Mg/Ml IV 11/23/21 09:59 8 mg DAILY JANNET Administration Diphenoxylate HCl/Atropine 1 tablet 11/12/21 17:25 Diphenoxylate Hcl/Atropine 1 Tablet PO 12/12/21 17:24 Q4H PRN PRN Enoxaparin Sodium 40 mg 11/13/21 10:00 11/18/21 09:28 Enoxaparin Sodium 40 Mg/0.4 Ml Syringe SQ 12/13/21 09:59 40 mg DAILY JANNET Administration Levothyroxine Sodium 125 mcg 11/13/21 10:00 11/18/21 09:30 Levothyroxine Sodium 125 Mcg Tablet PO 12/13/21 09:59 125 mcg DAILY JANNET Administration Loperamide HCl 2 mg 11/15/21 21:13 11/15/21 21:37 Loperamide Hcl 2 Mg Capsule PO 12/15/21 21:12 2 mg PRN PRN Administration DIARRHEA Lorazepam 1 mg 11/12/21 17:26 Lorazepam 2 Mg/1 Ml 2 Mg Vial IV 12/12/21 17:25 Q4H PRN PRN ANXIETY/SLEEP Lorazepam 1 mg 11/12/21 17:33 Lorazepam 1 Mg Tablet PO 12/12/21 17:32 Q4H PRN PRN Anxiety/Sleep Losartan Potassium 50 mg 11/13/21 10:00 11/18/21 09:28 Losartan Potassium 50 Mg Tablet PO 12/13/21 09:59 50 mg DAILY JANNET Administration Ondansetron HCl 4 mg 11/12/21 17:33 Ondansetron Hcl 4 Mg/2 Ml Vial IV 12/12/21 17:32 Q6H PRN PRN NAUSEA/VOMITING Pantoprazole Sodium 40 mg 11/16/21 12:00 11/18/21 09:28 Protonix (Pantoprazole) 40 Mg Tablet PO 12/16/21 11:59 40 mg DAILY JANNET Administration Discontinued Medications Generic Name Dose Route Start Last Admin Trade Name Freq PRN Reason Stop Dose Admin Acetaminophen 0 mg 11/12/21 17:27 Acetaminophen 500 Mg Tablet PO 12/12/21 17:26 Q4H PRN PRN TEMP >100.4 Hydrocodone Bitart/Acetaminophen 10 ml 11/12/21 14:29 11/12/21 14:50 Hydrocodone/Acetaminophen 5 Ml Udcup PO 11/12/21 14:30 10 ml STAT STA Administration Hydrocodone Bitart/Acetaminophen Confirm 11/12/21 14:49 Hydrocodone/Acetaminophen 5 Ml Udcup Administered 11/12/21 14:50 Dose 10 ml .ROUTE .STK-MED ONE Albuterol Sulfate Confirm 11/17/21 19:41 Albuterol Sulfate 8 Gm Mdi Hfa Administered 11/17/21 19:42 Dose 8 gm IH .STK-MED ONE Albuterol Sulfate 0 gm 11/17/21 20:16 11/17/21 19:45 Albuterol Sulfate 8 Gm Mdi Hfa IH 12/17/21 20:15 32 gm Q4H PRN PRN Administration wheezing Chlorphenir/Hydrocodone Polistirex 5 ml 11/12/21 17:27 Hydrocodone/Chlorphen P-Stirex 1 Ml Daphne.Er.12h PO 12/12/21 17:26 [id number] PRN Methylprednisolone Sodium 0 mg 11/12/21 14:27 11/12/21 14:48 Succinate 125 mg/ Sterile IV 11/12/21 14:28 125 mg Water 2 ml STAT ONE Administration Dexamethasone Sodium Phosphate 8 mg 11/13/21 10:00 Dexamethasone Sod Phosphate 10 Mg/Ml IV 12/13/21 09:59 DAILY JANNET Enoxaparin Sodium 120 mg 11/12/21 15:38 11/12/21 16:18 Enoxaparin Sodium 120 Mg/0.8 Ml Syringe SQ 11/12/21 15:39 120 mg STAT STA Administration Enoxaparin Sodium Confirm 11/12/21 16:18 Enoxaparin Sodium 120 Mg/0.8 Ml Syringe Administered 11/12/21 16:19 Dose 120 mg SQ .STK-MED ONE Enoxaparin Sodium 40 mg 11/13/21 10:00 Enoxaparin Sodium 40 Mg/0.4 Ml Syringe SQ 12/13/21 09:59 DAILY JANNET Sodium Chloride 1,000 mls @ 60 mls/hr 11/12/21 14:30 11/12/21 14:49 Sodium Chloride 0.9% 1000 Ml IV 12/12/21 14:29 100 mls/hr .[id number] JANNET Administration Remdesivir 200 mg/ Sodium 250 mls @ 125 mls/hr 11/12/21 15:38 11/12/21 16:16 Chloride IV 11/12/21 17:37 125 mls/hr ONCE ONE Administration Remdesivir 100 mg/ Sodium 100 mls @ 100 mls/hr 11/13/21 10:00 Chloride IV 11/16/21 10:59 DAILY JANNET Sodium Chloride 1,000 mls @ 60 mls/hr 11/12/21 17:33 11/13/21 06:14 Sodium Chloride 0.9% 1000 Ml IV 12/12/21 17:32 60 mls/hr .[id number] JANNET Administration Remdesivir 100 mg/ Sodium 100 mls @ 100 mls/hr 11/13/21 10:00 11/16/21 10:15 Chloride IV 11/16/21 10:59 Not Given DAILY JANNET Lorazepam 1 mg 11/12/21 17:26 Lorazepam 1 Mg Tablet PO 12/12/21 17:25 Q4H PRN PRN ANXIETY/SLEEP Methylprednisolone Sodium Succinate Confirm 11/12/21 14:46 Methylprednis Sod Succ 125 Mg/2 Ml Vial Administered 11/12/21 14:47 Dose 125 mg .ROUTE .STK-MED ONE Metoprolol Tartrate 50 mg 11/16/21 22:00 Metoprolol Tartrate 50 Mg Tablet PO 12/16/21 21:59 BID JANNET Oseltamivir Phosphate 75 mg 11/13/21 22:00 11/15/21 10:15 Oseltamivir 75 Mg Cap PO 11/18/21 21:59 75 mg BID JANNET Administration Sterile Water Confirm 11/12/21 14:46 Water For Injection,Sterile 10 Ml Vial Administered 11/12/21 14:47 Dose 10 ml IJ .STK-MED ONE Intake & Output (Last 24 hours) 11/16/21 11/17/21 11/18/21 11/19/21 11:59 11:59 11:59 11:59 Intake Total 1280 1180 1900 Balance 1280 1180 1900 Orders (Last 24 hours) Category Date Time Status Albuterol 8 gm Mdi Hfa [Ventolin Hfa MDI] Med 11/17/21 19:41 Discontinued 8 gm IH .STK-MED ONE Albuterol 8 gm Mdi Hfa [Ventolin Hfa MDI] Med 11/17/21 20:16 Discontinued See Dose Instructions IH Q4H PRN PRN Albuterol Common Canister [Ventolin Common Canister* Med 11/18/21 07:08 Active ] 2 puff IH Q4H PRN PRN Flutter Therapy UD RT 11/17/21 20:19 Completed Incentive Spirometry UD RT 11/17/21 20:19 Completed Respiratory Therapy Assessment DAILY RT 11/17/21 20:19 Active Code(s): U07.1 - COVID-19; J12.82 - PNEUMONIA DUE TO CORONAVIRUS DISEASE 2019 (2) Hypoxia Current Visit: Yes Status: Acute Code(s): R09.02 - HYPOXEMIA
[2021-11-18] MEDS: HYDROCODONE-CHLORPHEN ER SUSP PO PRN (20:21)
[2021-11-19] MEDS: OLUMIANT PO SCH (09:46)
[2021-11-19] MEDS: Protonix 40MG Tablet PO SCH (09:47)
[2021-11-19] MEDS: Cozaar 50 MG PO SCH (09:47)
[2021-11-19] MEDS: DECADRON 10MG INJ. IV SCH (09:47)
[2021-11-19] MEDS: ENOXAPARIN SODIUM SQ SCH (09:47)
[2021-11-19] MEDS: SYNTHROID 125 MCG PO SCH (09:48)
[2021-11-19] MEDS: HYDROCODONE-CHLORPHEN ER SUSP PO PRN ×2 (09:59→21:47)
[2021-11-19] MEDS: Ativan 1 MG PO PRN ×3 (09:59→20:59)
--- NOTE | 2021-11-19 17:05 | PCM.NOTE ---
Date and Time: 11/19/211703 Subjective Assessment: doing better today - Review of Systems Constitutional: No Fever, No Chills Eyes: No Symptoms Ears, Nose, & Throat: No Symptoms Respiratory: Short Of Breath, No Cough Cardiac: No Chest Pain, No Edema, No Syncope Abdominal/Gastrointestinal: No Abdominal Pain, No Nausea, No Vomiting, No Diarrhea Genitourinary Symptoms: No Dysuria Musculoskeletal: No Back Pain, No Neck Pain Skin: No Rash Neurological: No Dizziness, No Focal Weakness, No Sensory Changes Psychological: No Symptoms Endocrine: No Symptoms Hematologic/Lymphatic: No Symptoms Immunological/Allergic: No Symptoms Objective Exam General Appearance: no apparent distress, alert Neurologic Exam: alert, oriented x 3, cooperative, normal mood/affect, nml cerebellar function, sensation nml, No motor deficits Skin Exam: normal color, warm, dry Eye Exam: PERRL, EOMI, eyes nml inspection Ears, Nose, Throat Exam: normal ENT inspection, pharynx normal, moist mucous membranes Neck Exam: normal inspection, non-tender, supple, full range of motion Respiratory Exam: normal breath sounds, lungs clear, No respiratory distress Cardiovascular Exam: regular rate/rhythm, normal heart sounds Gastrointestinal/Abdomen Exam: soft, No tenderness, No mass Extremity Exam: normal inspection, normal range of motion Back Exam: normal inspection, normal range of motion, No CVA tenderness, No vertebral tenderness Male Genitalia Exam: deferred Rectal Exam: deferred OBJECTIVE DATA Vital Signs: Vital Signs - 24 hr Temp Pulse Resp BP Pulse Ox 11/19/21 16:00 97.8 F 86 21 122/62 88 L 11/19/21 15:00 59 L 21 80 L 11/19/21 14:00 86 24 89 L 11/19/21 13:00 111 H 15 76 L 11/19/21 12:00 97.5 F 82 22 133/70 89 L 11/19/21 11:00 87 18 82 L 11/19/21 10:00 92 H 19 79 L 11/19/21 09:00 98 H 21 75 L 11/19/21 08:00 98.7 F 100 H 26 H 143/69 71 L 11/19/21 07:00 68 21 87 L 11/19/21 05:55 97.5 F 57 L 24 122/75 88 L 11/19/21 05:00 97.5 F 58 L 22 122/75 91 L 11/19/21 04:00 97.5 F 52 L 22 122/75 88 L 11/19/21 03:00 49 L 22 94 L 11/19/21 02:00 45 L 29 H 124/75 93 L 11/19/21 01:00 56 L 20 86 L 11/19/21 00:00 97.5 F 69 24 124/75 93 L 11/18/21 23:00 97.5 F 56 L 15 124/75 98 11/18/21 22:00 57 L 15 96 11/18/21 21:00 66 21 95 11/18/21 20:45 80 19 84 L 11/18/21 20:00 97.5 F 73 16 124/75 90 L 11/18/21 19:00 74 19 88 L 11/18/21 18:00 75 24 93 L Pain Assessment - Last Documented Pain Intensity 0 Pain Scale Used 0-10 Pain Scale Intake and Output: Intake & Output 11/17/21 11/18/21 11/19/21 11/20/21 11:59 11:59 11:59 11:59 Intake Total 1180 1900 2480 420 Balance 1180 1900 2480 420 Multi-Disciplinary Progress Notes: Multi-Disciplinary Progress Notes 11/19/21 15:29 Nutrition Note by Stephanie Lr F/u Note: house regular diet con't with 75-100% po intake. Labs 11/15= BUN 25, Cr wnl, alb 3.1. adm weight 143.1kg; current weight 144.3kg. goal of po intake >=75% met and ongoing. Will con't to monitor and f/u prn T.GRIS Lr Initialized on 11/19/21 15:29 - END OF NOTE 11/18/21 21:17 Respiratory Note by Jessika Loya Patient's SpO2 74% after returning from restroom. Educated patient on different oxygenation source that would deliver higher oxygen concentration--the heated high flow, but patient stated "he did not want to wear it". Encouraged deep breathing and continued breathing exercises with flutter valve and incentive spirometer when SpO2 is within normal range. Initialized on 11/18/21 21:17 - END OF NOTE Assessment/Plan (1) Pneumonia due to COVID-19 virus Current Visit: Yes Status: Acute Assessment & Plan: improving Code(s): U07.1 - COVID-19; J12.82 - PNEUMONIA DUE TO CORONAVIRUS DISEASE 2019 (2) Hypoxia Current Visit: Yes Status: Acute Code(s): R09.02 - HYPOXEMIA
[2021-11-20] MEDS: DECADRON 10MG INJ. IV SCH (09:38)
[2021-11-20] MEDS: Protonix 40MG Tablet PO SCH (09:38)
[2021-11-20] MEDS: Cozaar 50 MG PO SCH (09:38)
[2021-11-20] MEDS: OLUMIANT PO SCH (09:38)
[2021-11-20] MEDS: ENOXAPARIN SODIUM SQ SCH (09:38)
[2021-11-20] MEDS: SYNTHROID 125 MCG PO SCH (09:40)
[2021-11-20] MEDS: Ativan 1 MG PO PRN ×2 (09:47→21:01)
[2021-11-20] MEDS: REMDESIVIR 100 MG in Sodium Chloride 0.9% 100 ML BAG 100 ML IV SCH ×2 (17:13→17:18)
--- NOTE | 2021-11-20 17:29 | PCM.NOTE ---
Date and Time: 11/20/211726 Subjective Assessment: still very short of breath - Review of Systems Constitutional: No Fever, No Chills Eyes: No Symptoms Ears, Nose, & Throat: No Symptoms Respiratory: Orthopnea, Short Of Breath, No Cough Cardiac: No Chest Pain, No Edema, No Syncope Abdominal/Gastrointestinal: No Abdominal Pain, No Nausea, No Vomiting, No Diarrhea Genitourinary Symptoms: No Dysuria Musculoskeletal: No Back Pain, No Neck Pain Skin: No Rash Neurological: No Dizziness, No Focal Weakness, No Sensory Changes Psychological: No Symptoms Endocrine: No Symptoms Hematologic/Lymphatic: No Symptoms Immunological/Allergic: No Symptoms Objective Exam General Appearance: no apparent distress, alert Neurologic Exam: alert, oriented x 3, cooperative, normal mood/affect, nml cerebellar function, sensation nml, No motor deficits Skin Exam: normal color, warm, dry Eye Exam: PERRL, EOMI, eyes nml inspection Ears, Nose, Throat Exam: normal ENT inspection, pharynx normal, moist mucous membranes Neck Exam: normal inspection, non-tender, supple, full range of motion Respiratory Exam: crackles/rales, rhonchi, wheezing, No respiratory distress, No diminished breath sounds Cardiovascular Exam: regular rate/rhythm, normal heart sounds Gastrointestinal/Abdomen Exam: soft, No tenderness, No mass Extremity Exam: normal inspection, normal range of motion Back Exam: normal inspection, normal range of motion, No CVA tenderness, No vertebral tenderness Male Genitalia Exam: deferred Rectal Exam: deferred OBJECTIVE DATA Vital Signs: Vital Signs - 24 hr Temp Pulse Resp BP Pulse Ox 11/20/21 15:00 61 25 H 91 L 11/20/21 14:00 62 22 91 L 11/20/21 13:00 92 H 33 H 80 L 11/20/21 12:00 103 H 22 71 L 11/20/21 11:00 98.6 F 101 H 14 132/77 70 L 11/20/21 10:00 70 24 88 L 11/20/21 08:23 58 L 24 85 L 11/20/21 08:00 97.7 F 58 L 24 154/77 89 L 11/20/21 07:00 46 L 30 H 89 L 11/20/21 05:54 51 L 18 89 L 11/20/21 04:54 47 L 21 89 L 11/20/21 04:00 48 L 21 90 L 11/20/21 02:46 97.8 F 50 L 30 H 120/67 87 L 11/20/21 01:58 52 L 20 85 L 11/20/21 01:00 97.8 F 48 L 32 H 119/67 87 L 11/19/21 23:53 97.8 F 52 L 24 119/67 91 L 11/19/21 23:00 57 L 14 87 L 11/19/21 22:00 54 L 15 11/19/21 21:00 98.6 F 68 12 119/67 11/19/21 19:53 28 H 11/19/21 19:15 72 19 93 L 11/19/21 19:00 97.8 F 69 30 H 122/62 92 L 11/19/21 18:00 78 22 83 L 11/19/21 17:35 25 H Pain Assessment - Last Documented Pain Intensity 0 Pain Scale Used 0-10 Pain Scale Intake and Output: Intake & Output 11/18/21 11/19/21 11/20/21 11/21/21 11:59 11:59 11:59 11:59 Intake Total 1900 2480 1780 240 Balance 1900 2480 1780 240 Multi-Disciplinary Progress Notes: Multi-Disciplinary Progress Notes 11/20/21 11:59 Case Management Note by Kenya Sumner S/W PATIENT'S - SHE WAS UPDATED THAT PATIENT HAS BEEN REFUSING OT USE THE URINAL AND DESATS SIGNIFICANTLY WHEN UP. SHE VERIFIED UNDERSTANDING. SHE REPORTS HE IS VERY STUBBORN AND UNDERSTANDS. SHE WILL TRY TO TALK TO HIM TO SEE IF SHE CAN GET HIM TO REST HIS LUNGS AND USE THE URINAL AT TIMES Initialized on 11/20/21 11:59 - END OF NOTE 11/20/21 08:56 Case Management Note by Kenya Sumner PATIENT ACUTELY ILL- WILL NEED DC PLANNING REASSESSED CLOSER TO TIME OF DC. HE IS NORMALLY INDEPENDENT AT HOME WITH ADLS, LIVES WITH HIS . HE BLACKBURN NOT USE ANY OXYGEN AT HOME, ONLY A CPAP AT NIGHT Initialized on 11/20/21 08:56 - END OF NOTE Assessment/Plan (1) Pneumonia due to COVID-19 virus Current Visit: Yes Status: Acute Assessment & Plan: Chief Complaint Diagnosis COVID-19, PNEUMONIA, HYPOXIA Allergies Allergy/AdvReac Type Severity Reaction Status Date / Time No Known Drug Allergies Allergy Verified 11/12/21 14:24 Vital Signs (Last 24 hours) Temp Pulse Resp BP Pulse Ox 11/20/21 15:00 61 25 H 91 L 11/20/21 14:00 62 22 91 L 11/20/21 13:00 92 H 33 H 80 L 11/20/21 12:00 103 H 22 71 L 11/20/21 11:00 98.6 F 101 H 14 132/77 70 L 11/20/21 10:00 70 24 88 L 11/20/21 08:23 58 L 24 85 L 11/20/21 08:00 97.7 F 58 L 24 154/77 89 L 11/20/21 07:00 46 L 30 H 89 L 11/20/21 05:54 51 L 18 89 L 11/20/21 04:54 47 L 21 89 L 11/20/21 04:00 48 L 21 90 L 11/20/21 02:46 97.8 F 50 L 30 H 120/67 87 L 11/20/21 01:58 52 L 20 85 L 11/20/21 01:00 97.8 F 48 L 32 H 119/67 87 L 11/19/21 23:53 97.8 F 52 L 24 119/67 91 L 11/19/21 23:00 57 L 14 87 L 11/19/21 22:00 54 L 15 11/19/21 21:00 98.6 F 68 12 119/67 11/19/21 19:53 28 H 11/19/21 19:15 72 19 93 L 11/19/21 19:00 97.8 F 69 30 H 122/62 92 L 11/19/21 18:00 78 22 83 L 11/19/21 17:35 25 H Home Medications Medication Instructions Recorded Confirmed Last Taken Type Benzonatate 100 mg PO TIDPRN 11/12/21 11/12/21 Unknown History Levothyroxine Sodium 100 Mcg 125 mcg PO DAILY 11/12/21 11/12/21 11/12/21 History [Synthroid 100 Mcg] Losartan Potassium 50 mg 50 mg PO DAILY 11/12/21 11/12/21 11/12/21 History [Cozaar 50 MG] ondansetron HCL [Zofran] 4 mg PO Q6H PRN 11/12/21 11/12/21 Unknown History Current Medications Generic Name Dose Route Start Last Admin Trade Name Frekavon PRN Reason Stop Dose Admin Acetaminophen 650 mg 11/12/21 17:27 Acetaminophen 650 Mg Supp.Rect RC 12/12/21 17:26 Q4H PRN PRN TEMP >100.4 Acetaminophen 500 - 1,000 mg 11/12/21 17:33 11/16/21 05:03 Acetaminophen 500 Mg Tablet PO 12/12/21 17:32 1,000 mg Q4H PRN PRN Administration Temp > 100.4 Orally Albuterol Sulfate 2 puff 11/18/21 07:08 Albuterol Common Canister Inhaler IH 12/18/21 07:07 Q4H PRN PRN sob Baricitinib 4 mg 11/12/21 18:00 11/20/21 09:38 Baricitinib 2 Mg Tablet PO 11/25/21 10:01 4 mg DAILY JANNET Administration Chlorphenir/Hydrocodone Polistirex 5 ml 11/12/21 17:33 11/19/21 21:47 Hydrocodone/Chlorphen P-Stirex 1 Ml Daphne.Er.12h PO 12/12/21 17:32 5 ml [id number] PRN Administration COUGH Dexamethasone Sodium Phosphate 8 mg 11/13/21 10:00 11/20/21 09:38 Dexamethasone Sod Phosphate 10 Mg/Ml IV 11/23/21 09:59 8 mg DAILY JANNET Administration Diphenoxylate HCl/Atropine 1 tablet 11/12/21 17:25 Diphenoxylate Hcl/Atropine 1 Tablet PO 12/12/21 17:24 Q4H PRN PRN Enoxaparin Sodium 40 mg 11/13/21 10:00 11/20/21 09:38 Enoxaparin Sodium 40 Mg/0.4 Ml Syringe SQ 12/13/21 09:59 40 mg DAILY JANNET Administration Remdesivir 100 mg/ Sodium 100 mls @ 100 mls/hr 11/20/21 14:00 11/20/21 17:18 Chloride IV 11/24/21 14:59 Not Given Q24H JANNET Levothyroxine Sodium 125 mcg 11/13/21 10:00 11/20/21 09:40 Levothyroxine Sodium 125 Mcg Tablet PO 12/13/21 09:59 125 mcg DAILY JANNET Administration Loperamide HCl 2 mg 11/15/21 21:13 11/15/21 21:37 Loperamide Hcl 2 Mg Capsule PO 12/15/21 21:12 2 mg PRN PRN Administration DIARRHEA Lorazepam 1 mg 11/12/21 17:26 Lorazepam 2 Mg/1 Ml 2 Mg Vial IV 12/12/21 17:25 Q4H PRN PRN ANXIETY/SLEEP Lorazepam 1 mg 11/12/21 17:33 11/20/21 09:47 Lorazepam 1 Mg Tablet PO 12/12/21 17:32 1 mg Q4H PRN PRN Administration Anxiety/Sleep Losartan Potassium 50 mg 11/13/21 10:00 11/20/21 09:38 Losartan Potassium 50 Mg Tablet PO 12/13/21 09:59 50 mg DAILY JANNET Administration Ondansetron HCl 4 mg 11/12/21 17:33 Ondansetron Hcl 4 Mg/2 Ml Vial IV 12/12/21 17:32 Q6H PRN PRN NAUSEA/VOMITING Pantoprazole Sodium 40 mg 11/16/21 12:00 11/20/21 09:38 Protonix (Pantoprazole) 40 Mg Tablet PO 12/16/21 11:59 40 mg DAILY JANNET Administration Discontinued Medications Generic Name Dose Route Start Last Admin Trade Name Freq PRN Reason Stop Dose Admin Acetaminophen 0 mg 11/12/21 17:27 Acetaminophen 500 Mg Tablet PO 12/12/21 17:26 Q4H PRN PRN TEMP >100.4 Hydrocodone Bitart/Acetaminophen 10 ml 11/12/21 14:29 11/12/21 14:50 Hydrocodone/Acetaminophen 5 Ml Udcup PO 11/12/21 14:30 10 ml STAT STA Administration Hydrocodone Bitart/Acetaminophen Confirm 11/12/21 14:49 Hydrocodone/Acetaminophen 5 Ml Udcup Administered 11/12/21 14:50 Dose 10 ml .ROUTE .STK-MED ONE Albuterol Sulfate Confirm 11/17/21 19:41 Albuterol Sulfate 8 Gm Mdi Hfa Administered 11/17/21 19:42 Dose 8 gm IH .STK-MED ONE Albuterol Sulfate 0 gm 11/17/21 20:16 11/17/21 19:45 Albuterol Sulfate 8 Gm Mdi Hfa IH 12/17/21 20:15 32 gm Q4H PRN PRN Administration wheezing Chlorphenir/Hydrocodone Polistirex 5 ml 11/12/21 17:27 Hydrocodone/Chlorphen P-Stirex 1 Ml Daphne.Er.12h PO 12/12/21 17:26 [id number] PRN Methylprednisolone Sodium 0 mg 11/12/21 14:27 11/12/21 14:48 Succinate 125 mg/ Sterile IV 11/12/21 14:28 125 mg Water 2 ml STAT ONE Administration Dexamethasone Sodium Phosphate 8 mg 11/13/21 10:00 Dexamethasone Sod Phosphate 10 Mg/Ml IV 12/13/21 09:59 DAILY JANNET Enoxaparin Sodium 120 mg 11/12/21 15:38 11/12/21 16:18 Enoxaparin Sodium 120 Mg/0.8 Ml Syringe SQ 11/12/21 15:39 120 mg STAT STA Administration Enoxaparin Sodium Confirm 11/12/21 16:18 Enoxaparin Sodium 120 Mg/0.8 Ml Syringe Administered 11/12/21 16:19 Dose 120 mg SQ .STK-MED ONE Enoxaparin Sodium 40 mg 11/13/21 10:00 Enoxaparin Sodium 40 Mg/0.4 Ml Syringe SQ 12/13/21 09:59 DAILY JANNET Sodium Chloride 1,000 mls @ 60 mls/hr 11/12/21 14:30 11/12/21 14:49 Sodium Chloride 0.9% 1000 Ml IV 12/12/21 14:29 100 mls/hr .[id number] JANNET Administration Remdesivir 200 mg/ Sodium 250 mls @ 125 mls/hr 11/12/21 15:38 11/12/21 16:16 Chloride IV 11/12/21 17:37 125 mls/hr ONCE ONE Administration Remdesivir 100 mg/ Sodium 100 mls @ 100 mls/hr 11/13/21 10:00 Chloride IV 11/16/21 10:59 DAILY JANNET Sodium Chloride 1,000 mls @ 60 mls/hr 11/12/21 17:33 11/13/21 06:14 Sodium Chloride 0.9% 1000 Ml IV 12/12/21 17:32 60 mls/hr .[id number] JANNET Administration Remdesivir 100 mg/ Sodium 100 mls @ 100 mls/hr 11/13/21 10:00 11/16/21 10:15 Chloride IV 11/16/21 10:59 Not Given DAILY JANNET Lorazepam 1 mg 11/12/21 17:26 Lorazepam 1 Mg Tablet PO 12/12/21 17:25 Q4H PRN PRN ANXIETY/SLEEP Methylprednisolone Sodium Succinate Confirm 11/12/21 14:46 Methylprednis Sod Succ 125 Mg/2 Ml Vial Administered 11/12/21 14:47 Dose 125 mg .ROUTE .STK-MED ONE Metoprolol Tartrate 50 mg 11/16/21 22:00 Metoprolol Tartrate 50 Mg Tablet PO 12/16/21 21:59 BID JANNET Oseltamivir Phosphate 75 mg 11/13/21 22:00 11/15/21 10:15 Oseltamivir 75 Mg Cap PO 11/18/21 21:59 75 mg BID JANNET Administration Sterile Water Confirm 11/12/21 14:46 Water For Injection,Sterile 10 Ml Vial Administered 11/12/21 14:47 Dose 10 ml IJ .STK-MED ONE Intake & Output (Last 24 hours) 11/18/21 11/19/21 11/20/21 11/21/21 11:59 11:59 11:59 11:59 Intake Total 1900 2480 1780 240 Balance 1900 2480 1780 240 Orders (Last 24 hours) Category Date Time Status Remdesivir 100 mg Med 11/20/21 14:00 Active NaCl 0.9% 100Ml [Sodium Chloride 0.9% 100 ML BAG] 100 ml IV Q24H Patient Care Notes (Last 24 hours) 11/20/21 11:59 Case Management Note by Kenya Sumner S/W PATIENT'S - SHE WAS UPDATED THAT PATIENT HAS BEEN REFUSING OT USE THE URINAL AND DESATS SIGNIFICANTLY WHEN UP. SHE VERIFIED UNDERSTANDING. SHE REPORTS HE IS VERY STUBBORN AND UNDERSTANDS. SHE WILL TRY TO TALK TO HIM TO SEE IF SHE CAN GET HIM TO REST HIS LUNGS AND USE THE URINAL AT TIMES Initialized on 11/20/21 11:59 - END OF NOTE 11/20/21 08:56 Case Management Note by Kenya Sumner PATIENT ACUTELY ILL- WILL NEED DC PLANNING REASSESSED CLOSER TO TIME OF DC. HE IS NORMALLY INDEPENDENT AT HOME WITH ADLS, LIVES WITH HIS . HE BLACKBURN NOT USE ANY OXYGEN AT HOME, ONLY A CPAP AT NIGHT Initialized on 11/20/21 08:56 - END OF NOTE Code(s): U07.1 - COVID-19; J12.82 - PNEUMONIA DUE TO CORONAVIRUS DISEASE 2019 (2) Hypoxia Current Visit: Yes Status: Acute Code(s): R09.02 - HYPOXEMIA
[2021-11-20] MEDS: HYDROCODONE-CHLORPHEN ER SUSP PO PRN (21:01)
[2021-11-21] MEDS: Ativan 1 MG PO PRN ×4 (03:25→23:33)
[2021-11-21] MEDS: DECADRON 10MG INJ. IV SCH (09:19)
[2021-11-21] MEDS: ENOXAPARIN SODIUM SQ SCH (09:19)
[2021-11-21] MEDS: OLUMIANT PO SCH (09:20)
[2021-11-21] MEDS: SYNTHROID 125 MCG PO SCH (09:20)
[2021-11-21] MEDS: Protonix 40MG Tablet PO SCH (09:20)
[2021-11-21] MEDS: Cozaar 50 MG PO SCH (09:20)
[2021-11-21] MEDS: HYDROCODONE-CHLORPHEN ER SUSP PO PRN ×2 (09:30→23:33)
[2021-11-22 06:29] LABS: Hemoglobin 14.5 gm/dl (12.5-18.0); Mean Cell Volume 91.7 fl (78-100); Mean Corpuscular Hemoglobin 30.2 pg (26-32); Mean Platelet Volume 10.1 fl (7.5-11.0); Platelet Count 368 K/mm3 (150-450); Red Cell Distribution Width 13.9 % (11.5-14.0); White Blood Count 18.6 K/mm3 (4.0-10.5)
[2021-11-22] MEDS: Ativan 1 MG PO PRN ×4 (08:12→19:55)
--- NOTE | 2021-11-22 08:28 | XRAY ---
Indication: Covid 19 pneumonia. Comparison: November 15, 2021. Portable chest demonstrates worsening diffuse bilateral moderate/significant airspace disease with multifocal areas of consolidation. No large effusion. Heart not enlarged.
[2021-11-22] MEDS: Cozaar 50 MG PO SCH (09:38)
[2021-11-22] MEDS: DECADRON 10MG INJ. IV SCH (09:38)
[2021-11-22] MEDS: ENOXAPARIN SODIUM SQ SCH (09:38)
[2021-11-22] MEDS: OLUMIANT PO SCH (09:38)
[2021-11-22] MEDS: Protonix 40MG Tablet PO SCH (09:38)
[2021-11-22] MEDS: SYNTHROID 125 MCG PO SCH (09:39)
[2021-11-22] MEDS: HYDROCODONE-CHLORPHEN ER SUSP PO PRN (12:18)
[2021-11-22] MEDS: Diflucan 100 MG PO SCH (12:18)
[2021-11-23] MEDS: Ativan 1 MG PO PRN (00:18)
[2021-11-23] MEDS: HYDROCODONE-CHLORPHEN ER SUSP PO PRN ×2 (00:18→12:18)
[2021-11-23] MEDS: Protonix 40MG Tablet PO SCH (09:25)
[2021-11-23] MEDS: OLUMIANT PO SCH (09:25)
[2021-11-23] MEDS: ENOXAPARIN SODIUM SQ SCH (09:25)
[2021-11-23] MEDS: SYNTHROID 125 MCG PO SCH (09:26)
[2021-11-23] MEDS: Diflucan 100 MG PO SCH (09:34)
[2021-11-23] MEDS: Cozaar 50 MG PO SCH (09:37)
[2021-11-23] MEDS ORDERED: Ventolin Hfa MDI IH PRN (10:19)
[2021-11-24] MEDS: HYDROCODONE-CHLORPHEN ER SUSP PO PRN ×2 (00:12→14:53)
[2021-11-24] MEDS: Ativan 1 MG PO PRN ×4 (00:13→19:42)
[2021-11-24] MEDS: OLUMIANT PO SCH (10:23)
[2021-11-24] MEDS: Cozaar 50 MG PO SCH (10:24)
[2021-11-24] MEDS: Diflucan 100 MG PO SCH (10:24)
[2021-11-24] MEDS: Protonix 40MG Tablet PO SCH (10:24)
[2021-11-24] MEDS: ENOXAPARIN SODIUM SQ SCH (10:24)
[2021-11-24] MEDS: SYNTHROID 125 MCG PO SCH (10:25)
[2021-11-24] MEDS: TYLENOL EXTRA STRENGTH 500 MG PO PRN (20:01)
[2021-11-25] MEDS: HYDROCODONE-CHLORPHEN ER SUSP PO PRN ×2 (02:53→14:32)
[2021-11-25] MEDS: TYLENOL EXTRA STRENGTH 500 MG PO PRN ×2 (02:56→08:09)
[2021-11-25] MEDS: Ativan 1 MG PO PRN ×2 (02:56→08:09)
[2021-11-25] MEDS: SYNTHROID 125 MCG PO SCH (09:43)
[2021-11-25] MEDS: OLUMIANT PO SCH (09:43)
[2021-11-25] MEDS: Diflucan 100 MG PO SCH (09:43)
[2021-11-25] MEDS: Cozaar 50 MG PO SCH (09:43)
[2021-11-25] MEDS: Protonix 40MG Tablet PO SCH (09:43)
[2021-11-25] MEDS: ENOXAPARIN SODIUM SQ SCH (09:44)
--- NOTE | 2021-11-25 11:09 | DS ---
ADMISSION DIAGNOSES: 1) COVID pneumonia. 2) Respiratory distress. 3) Obesity. 4) Hypothyroidism. 5) Hypertension. 6) Sleep apnea. DISCHARGE DIAGNOSES: 1) COVID PNEUMONIA. 2) RESPIRATORY DISTRESS. 3) OBESITY. 4) HYPOTHYROIDISM. 5) HYPERTENSION. 6) SLEEP APNEA. HOSPITAL COURSE: The patient came to the emergency room and tested positive. He wanted monoclonal antibodies. His O2 was 86% on room air which makes him too sick to send home. He tested positive for influenza A and COVID. He is very adamant about his treatment, wanting some medicines and not the others. I told him he did not qualify for antibodies. He continued to drop his oxygen during the first few days of his stay. He required high-flow oxygen for most of his stay and was fitted with a mask but somehow kept his O2 up if it dropped with any activity. He made a routine of timing the recovery time from the time it dropped to the time it came over 90. I kind of thought he was controlling his own disease and he also had some breathing exercises he would treat himself with. This made him happy as he had control of the situation and we encouraged it. Amazingly, he suddenly improved 24 hours before being discharged and his O2 stayed above 90% accept with exertion it dropped to 90 to 86%. I set up oxygen but I do not know if he will use it. He is to go home on some prednisone 40 mg for 5 days, 20 mg for 5 days, stay inside, to rest. We then discussed vaccines because he adamant that he was not going to get a vaccine. PROGNOSIS: Good.
[2021-11-25 12:07] VITALS: BP 113/62
[2021-11-25 14:58] VITALS: PULSE 71; O2SAT 92
== END 2021-11-25 15:25 | disposition home or self-care (01) | DRG 177 ==
LOC: ED 14:14 → MED SURG 17:28
PROVIDERS: ADMIT Family Medicine; ATTEND Family Medicine
DX: U07.1 COVID-19 (principal); J12.82 Pneumonia due to coronavirus disease 2019; R06.03 Acute respiratory distress; E66.9 Obesity, unspecified; E03.9 Hypothyroidism, unspecified; I10 Essential (primary) hypertension; G47.30 Sleep apnea, unspecified; J09.X2 Influenza due to identified novel influenza A virus with other respiratory manifestations; R09.02 Hypoxemia; Z79.01 Long term (current) use of anticoagulants; Z79.899 Other long term (current) drug therapy
CPT/HCPCS: 36000; 36415; 71045; 80053; 83605; 84484; 85025; 85027; 85379; 86308; 87040; 87651; 93005; 93041; 94640; 94667; 94762; 96372; 96374; 99284; 99291; J0248; J1100; J1650; J2405; J2930; A9270-GY